=== PATIENT | male | born 1960 | race Caucasian/White ===

== ENCOUNTER 2018-07-10 15:36 | Emergency (ER) | payer OTHER ==
--- NOTE | 2018-07-10 16:04 | ED ---
General Adult HPI - General Chief complaint: Psychiatric Symptoms Stated complaint: Mental health Time Seen by Provider: 07/10/18 15:40 Source: patient, RN notes reviewed Mode of arrival: ambulatory Limitations: no limitations - History of Present Illness Initial comments: This is a 58-year-old male who presents emergency Department with police because patient had to be restrained and brought in with them is escorted. Patient states she doesn't remember any event he just knows he hasn't been on any of his psych meds for 2 years he called the ambulance and then he thinks he had a mental breakdown is what he states. Patient denies any physical complaints today. Patient states he has an abrasion on his forehead but he doesn't remember getting into an altercation with police. He has no headache he has no loss of consciousness he had no dizziness he was not days. Patient denies any extremity pain patient denies any chest pain patient denies any abdominal pain. Patient denies any back pain. Patient is breathing from the right upper eyelid patient does not have any pain there he has no tetanus shot recently. Patient did state to me that people are trying to kill him and those of the people from the [place] that he knew from the war. - Related Data Allergies Allergy/AdvReac Type Severity Reaction Status Date / Time No Known Allergies Allergy Verified 07/10/18 16:18 Review of Systems ROS Statement: Those systems with pertinent positive or pertinent negative responses have been documented in the HPI. ROS Other: All systems not noted in ROS Statement are negative. Past Medical History Past Medical History: No Reported History, Asthma Additional Past Medical History / Comment(s): Nerve damage in leg History of Any Multi-Drug Resistant Organisms: None Reported Past Surgical History: Orthopedic Surgery, Tonsillectomy Additional Past Surgical History / Comment(s): testicular surgery Past Psychological History: Depression Smoking Status: Former smoker Past Alcohol Use History: None Reported Past Drug Use History: None Reported General Exam - General Exam Comments Initial Comments: GENERAL: Patient is well-developed and well-nourished. Patient is nontoxic and well- hydrated and is in mild distress. ENT: Neck is soft and supple. No significant lymphadenopathy is noted. Oropharynx is clear. Moist mucous membranes. Neck has full range of motion without eliciting any pain. EYES: The sclera were anicteric and conjunctiva were pink and moist. Extraocular movements were intact and pupils were equal round and reactive to light. Upper eyelid has a 1 cm laceration PULMONARY: Unlabored respirations. Good breath sounds bilaterally. No audible rales rhonchi or wheezing was noted. CARDIOVASCULAR: There is a regular rate and rhythm without any murmurs gallops or rubs. ABDOMEN: Soft and nontender with normal bowel sounds. SKIN: 1 cm laceration to the upper right eyebrow NEUROLOGIC: Patient is alert and oriented x3. Cranial nerves II through XII are grossly intact. Motor and sensory are also intact. Normal speech, volume and content. Symmetrical smile. MUSCULOSKELETAL: Normal extremities with adequate strength and full range of motion. No lower extremity swelling or edema. No calf tenderness. LYMPHATICS: No significant lymphadenopathy is noted PSYCHIATRIC: Patient states he has been hearing voices and was looking to get some help but he thinks he had a breakdown that's why he was fighting the police. Patient denies suicidal or homicidal ideations Limitations: no limitations Course Vital Signs 07/10/18 15:38 Temperature 96.7 F L Pulse Rate 118 H Respiratory 17 Rate Blood Pressure 135/91 O2 Sat by Pulse 97 Oximetry Procedures - Laceration Laceration #1 Consent Obtained: verbal consent Indication: laceration Site: other (Right upper eyelid) Description: linear Depth: simple, single layer Size of Sutures: other (Dermabond) Patient Tolerated Procedure: no complications Medical Decision Making - Medical Decision Making EPS evaluated the patient and determined that the patient needed inpatient therapy he will be transferred to another psychiatric facility. EKG shows normal sinus rhythm at 63 bpm AR interval is 184 QRS is 92 QT interval is 432 QTC is 442. EKG shows no ST segment elevation or depression - Lab Data Lab Results 07/10/18 07/10/18 Range/Units 16:04 16:04 Urine Color Yellow Urine Appearance Cloudy (Clear) Urine pH 6.0 (5.0-8.0) Ur Specific [place] 1.023 (1.001-1.035) Urine Protein 1+ H (Negative) Urine Glucose (UA) Negative (Negative) Urine Ketones 2+ H (Negative) Urine Blood Negative (Negative) Urine Nitrite Negative (Negative) Urine Bilirubin Negative (Negative) Urine Urobilinogen 2.0 (<2.0) mg/dL Ur Leukocyte Esterase Negative (Negative) Urine RBC 1 (0-5) /hpf Urine WBC 4 (0-5) /hpf Calcium Oxalate Crystal Few H (None) /hpf Hyaline Casts 24 H (0-2) /lpf Urine Mucus Many H (None) /hpf Urine Opiates Screen Not Detected (NotDetected) Ur Oxycodone Screen Not Detected (NotDetected) Urine Methadone Screen Not Detected (NotDetected) Ur Propoxyphene Screen Not Detected (NotDetected) Ur Barbiturates Screen Not Detected (NotDetected) U Tricyclic Antidepress Not Detected (NotDetected) Ur Phencyclidine Scrn Not Detected (NotDetected) Ur Amphetamines Screen Not Detected (NotDetected) U Methamphetamines Scrn Not Detected (NotDetected) U Benzodiazepines Scrn Not Detected (NotDetected) Urine Cocaine Screen Not Detected (NotDetected) U Marijuana (THC) Screen Not Detected (NotDetected) Disposition Clinical Impression: Acute psychosis, Eyelid laceration Disposition: TRANSFER TO PSYCH HOSP/UNIT Referrals: [facility],Clinic [Primary Care Provider] - 1-2 days Time of Disposition: 18:04
[2018-07-10] MEDS ORDERED: DIPH,PERTUS(ACELL)TETVAC-LF 0.5 ML VIAL IM ONE (16:15)
[2018-07-10 16:27] LABS: Amphetamine Screen,Urine Not Detected (NotDetected); Barbiturate Screen,Urine Not Detected (NotDetected); Benzodiazepines Screen,Urine Not Detected (NotDetected); Cocaine Screen,Urine Not Detected (NotDetected); Methadone Screen, Urine Not Detected (NotDetected); Opiate Screen,Urine Not Detected (NotDetected); Oxycodone Screen, Urine Not Detected (NotDetected); Phencyclidine Screen,Urine Not Detected (NotDetected); Tricyclic Antidepressant,Urine Not Detected (NotDetected); Urn Cannabinoid Scrn Not Detected (NotDetected)
[2018-07-10] MEDS ORDERED: LORazepam 2 MG/ML INJ IM STA (17:14)
[2018-07-10 18:28] LABS: Appearance,Urine Cloudy (Clear); Bilirubin,Urine Negative (Negative); Blood,Urine Negative (Negative); Calcium Oxalate Crystals,Urine Few /hpf; Color,Urine Yellow; Glucose,Urine (UA) Negative (Negative); Hyaline Casts,Urine 24 /lpf (0-2); Ketones,Urine 2+ (Negative); Leukocyte Esterase,Urine Negative (Negative); Mucus,Urine Many /hpf; Nitrite,Urine Negative (Negative); Protein,Urine 1+ (Negative); RBC,Urine 1 /hpf (0-5); Specific Gravity,Urine 1.023 (1.001-1.035); WBC,Urine 4 /hpf (0-5)
[2018-07-10 19:07] LABS: Basophils % (A) 0 %; Eosinophils # (A) 0.1 k/uL (0-0.7); Eosinophils % (A) 1 %; HCT 42.4 % (39.0-53.0); HGB 14.9 gm/dL (13.0-17.5); Lymphocytes # (A) 0.8 k/uL (1.0-4.8); Lymphocytes % (A) 5 %; MCH 29.3 pg (25.0-35.0); MCHC 35.1 g/dL (31.0-37.0); MCV 83.5 fL (80.0-100.0); Mean Platelet Volume 8.1; Monocytes # (A) 0.8 k/uL (0-1.0); Monocytes % (A) 5 %; Neutrophils # (A) 13.5 k/uL (1.3-7.7); Neutrophils % (A) 88 %; Platelet Count 206 k/uL (150-450); RBC 5.08 m/uL (4.30-5.90); RDW 13.2 % (11.5-15.5); WBC 15.3 k/uL (3.8-10.6)
[2018-07-10 19:09] LABS: ALT 22 U/L (21-72); AST 23 U/L (17-59); Albumin 4.1 g/dL (3.5-5.0); Alkaline Phosphatase 67 U/L (38-126); Anion Gap 9 mmol/L; Blood Urea Nitrogen 12 mg/dL (9-20); Calcium 9.3 mg/dL (8.4-10.2); Carbon Dioxide 24 mmol/L (22-30); Chloride 107 mmol/L (98-107); Glucose 92 mg/dL (74-99); Sodium 140 mmol/L (137-145); Total Bilirubin 0.8 mg/dL (0.2-1.3); Total Protein 6.5 g/dL (6.3-8.2)
[2018-07-10] MEDS ORDERED: IBUPROFEN 400 MG TAB PO STA (22:08)
[2018-07-11] MEDS ORDERED: HYDROcodone/APAP 5-325MG 1 EACH TAB PO STA (09:30)
--- NOTE | 2018-07-11 09:49 | XR ---
EXAMINATION TYPE: XR knee complete LT DATE OF EXAM: 07/11/2018 COMPARISON: NONE HISTORY: Pain TECHNIQUE: Four views are submitted. FINDINGS: Mild narrowing the medial compartment knee. Osseous structures are intact. No acute fracture seen. IMPRESSION: 1. No acute fracture or dislocation. 2. Mild arthropathy.
--- NOTE | 2018-07-11 09:56 | XR ---
EXAMINATION TYPE: XR Hip LT and AP Pelvis DATE OF EXAM: 07/11/2018 COMPARISON: 07/31/2014 HISTORY: Pain TECHNIQUE: A single AP view of the pelvis is obtained. Two views of the left hip are obtained. FINDINGS: There is no acute fracture/dislocation evident in the pelvis. The hip and sacroiliac join ts appear symmetric and unremarkable. The overlying soft tissue appears unremarkable. Calcifications in the pelvis likely are vascular. There is concentric narrowing of the joint space compatible with arthropathy. No erosive changes. Hypertrophic margins along the lateral margin the acetabulum can be associated with femoral acetabular impingement. Two views of left hip show no acute fracture or dislocation. No focal lytic or sclerotic lesion seen in the proximal left femur. The overlying soft tissue is unremarkable. IMPRESSION: There is no acute fracture or dislocation in the pelvis or left hip.
[2018-07-11 19:18] VITALS: BP 132/69; PULSE 88; RESP 18; TEMP 98.2
== END 2018-07-11 18:30 ==
LOC: EC 15:36
DX: S01.111A Laceration without foreign body of right eyelid and periocular area, initial encounter (principal); F23 Brief psychotic disorder; Z87.891 Personal history of nicotine dependence; Z23 Encounter for immunization; X58.XXXA Exposure to other specified factors, initial encounter
CPT/HCPCS: 36415; 93005; 80053; 84443; 85025; 81001; 80306; 73502; 73562; 90715; 99285; 12011; 90471; 96372; J2060; 12001

== ENCOUNTER 2023-06-08 11:37 | Emergency (ER) | payer OTHER, MEDICARE ==
--- NOTE | 2023-06-08 11:57 | ED ---
General Adult HPI - General Source: patient, family, RN notes reviewed Mode of arrival: ambulatory Limitations: no limitations <Vipin Lynn - Last Filed: 06/08/23 11:55> - General Source: RN notes reviewed, old records reviewed <Devin Dawson - Last Filed: 06/08/23 15:05> <Idania Munguia - Last Filed: 06/09/23 00:15> - General Stated complaint: Mental Health Time Seen by Provider: 06/08/23 11:55 - History of Present Illness Initial comments: 63-year-old male presents emergency department with family for psychiatric evaluation. Patient had recent medication adjustments. Patient family states that he's been having very erratic bizarre behavior that he essentially is not talking at this point He did deny being suicidal. (Vipin Lynn) Patient is a 63-year-old male that was initially seen as a quick note. Presents for increasing anxiety. Brought in by transfer to psych evaluation after being sent by neurologist. Has had some bizarre behavior where he has a hard time speaking kind of seems overly anxious. Denies being suicidal or homicidal. Denies any hallucinations. Seems very anxious. He is compliant with medications. Neurology is concerning that this may be psychiatric in nature. Symptoms have been ongoing for 2 months. Presents for further evaluation at this time. (Devin Dawson) - Related Data Home Medications Medication Instructions Recorded Confirmed Albuterol Inhaler [Ventolin Hfa 1 puff INHALATION RT-TID PRN 06/08/23 06/08/23 Inhaler] Cholecalciferol [Vitamin D3 (25 50 mcg PO DAILY 06/08/23 06/08/23 Mcg = 1000 Iu)] Fluticasone Propion/Salmeterol 1 puff INHALATION RT-BID 06/08/23 06/08/23 [Fluticasone-Salmeterol 100-50] Lanolin/Mineral Oil [Eucerin 1 applic TOPICAL TID PRN 06/08/23 06/08/23 Original Lotion] Losartan [Cozaar] 50 mg PO DAILY 06/08/23 06/08/23 Propranolol [Inderal] 20 mg PO BID 06/08/23 06/08/23 QUEtiapine [SEROquel] 50 mg PO HS 06/08/23 06/08/23 amLODIPine 10 mg PO DAILY 06/08/23 06/08/23 busPIRone HCl [Buspar] 20 mg PO TID 06/08/23 06/08/23 Previous Rx's Medication Instructions Recorded LORazepam [Ativan] 1 mg PO TID PRN 3 Days #9 tab 06/08/23 Allergies Allergy/AdvReac Type Severity Reaction Status Date / Time Yeast Allergy Unknown Verified 06/08/23 14:20 clindamycin AdvReac Diarrhea Verified 06/08/23 14:20 meloxicam AdvReac "BLEEDING" Verified 06/08/23 14:20 prednisone AdvReac Lethargy, Verified 06/08/23 14:20 agitation, confusion ADRENAL CORTICOSTEROIDS AdvReac INSOMNIA Uncoded 06/08/23 14:20 Review of Systems ROS Other: All systems not noted in ROS Statement are negative. <Vipin Lynn - Last Filed: 06/08/23 11:55> ROS Other: All systems not noted in ROS Statement are negative. <Devin Dawson - Last Filed: 06/08/23 15:05> ROS Other: All systems not noted in ROS Statement are negative. <Idania Munguia - Last Filed: 06/09/23 00:15> ROS Statement: Those systems with pertinent positive or pertinent negative responses have been documented in the HPI. General: Appears in no acute distress. HEAD: Normal with no signs of head trauma. EYES: PERRLA, EOMI, conjunctiva normal, no discharge. ENT: Hearing grossly intact, normal oropharynx. RESPIRATORY: Clear breath sounds bilaterally. No wheezes, rales, or rhonchi. C/V: Regular rate and rhythm. S1 and S2 auscultated, no edema, peripheral pul ses 2+ and intact throughout ABD: Abd is soft, nontender, nondistended EXT: Normal range of motion, no obvious deformity SKIN: No rashes or lesions observed on exposed skin. NEURO: Seems to be alert and oriented. Intermittently will respond to questions but seems overcome with anxiety when responding. No focal deficits. Ambulating without issue. (Devin Dawson) Past Medical History Past Medical History: Asthma, Hypertension, No Reported History Additional Past Medical History / Comment(s): Nerve damage in leg, covid History of Any Multi-Drug Resistant Organisms: None Reported Past Surgical History: Orthopedic Surgery, Tonsillectomy Additional Past Surgical History / Comment(s): testicular surgery Past Psychological History: Anxiety, Bipolar, Depression Smoking Status: Former smoker Past Alcohol Use History: None Reported Past Drug Use History: None Reported <Vipin Lynn - Last Filed: 06/08/23 11:55> General Exam Limitations: no limitations <Vipin Lynn - Last Filed: 06/08/23 11:55> - General Exam Comments Initial Comments: Visual Physical Exam Vital signs reviewed General: Well-appearing, nontoxic, no acute distress. Head: Normocephalic, atraumatic Eyes: PERRLA, EOMI ENT: Airway patent Chest: Nonlabored breathing Skin: No visual rash, normal skin tone Neuro: Alert and oriented 3 Musculoskeletal: No gross abnormalities (Vipin Lynn) Course Vital Signs 06/08/23 06/08/23 06/08/23 11:49 14:25 16:30 Temperature 98.4 F Pulse Rate 73 69 60 Respiratory 18 16 18 Rate Blood Pressure 151/81 134/77 127/77 O2 Sat by Pulse 99 100 100 Oximetry Medical Decision Making <Vipin Lynn - Last Filed: 06/08/23 11:55> - Lab Data Result diagrams: 06/08/23 12:11 06/08/23 12:11 - EKG Data -: EKG Interpreted by Me <Devin Dawson - Last Filed: 06/08/23 15:05> - Lab Data Result diagrams: 06/08/23 12:11 06/08/23 12:11 <Idania Munguia - Last Filed: 06/09/23 00:15> - Medical Decision Making I completed the quick note portion of this chart signed Vipin Lynn PA-C (Vipin Lynn) Was pt. sent in by a medical professional or institution ([facility], HOME HEALTH CARE WORKER, urgent care, hospital, or [facility]...) When possible be specific @ -No Did you speak to anyone other than the patient for history (EMS, parent, family, police, friend...)? What history was obtained from this source @ -No Did you review nursing and triage notes (agree or disagree)? Why? @ -I reviewed and agree with nursing and triage notes Were old charts reviewed (outside hosp., previous admission, EMS record, old EKG, old radiological studies, urgent care reports/EKG's, [facility] records)? Report findings @ -Old charts reviewed Differential Diagnosis (chest pain, altered mental status, abdominal pain women, abdominal pain men, vaginal bleeding, weakness, fever, dyspnea, syncope, headache, dizziness, GI bleed, back pain, seizure, CVA, palpatations, mental health, musculoskeletal)? @ -Differential Mental Health Depression, anxiety, bipolar, psychosis, schizophrenia, borderline personality, situational depression, adjustment disorder, behavioral disorder, brain tumor, malingering, substance abuse, encephalopathy, medication reaction, dementia, hyp othyroidism, degenerative neurologic disorder, lupus.... This is not meant to be all-inclusive list EKG interpreted by me (3pts min.). @ -As above X-rays interpreted by me (1pt min.). @ -None done CT interpreted by me (1pt min.). @ -CT brain shows no obvious acute intracranial process. U/S interpreted by me (1pt. min.). @ -None done What testing was considered but not performed or refused? (CT, X-rays, U/S, labs)? Why? @ -None What meds were considered but not given or refused? Why? @ -None Did you discuss the management of the patient with other professionals (professionals i.e. , PA, HOME HEALTH CARE WORKER, lab, RT, psych nurse, hospice social worker, dobie worker, teacher, employee service officer, case filler)? Give summary @ -EPS notified of the consult Was smoking cessation discussed for >3mins.? @ -No Was critical care preformed (if so, how long)? @ -No Were there social determinants of health that impacted care today? How? (Homelessness, low income, unemployed, alcoholism, drug addiction, transportation, low edu. Level, literacy, decrease access to med. care, fpc, rehab)? @ -No Was there de-escalation of care discussed even if they declined (Discuss DNR or withdrawal of care, Hospice)? DNR status @ -No What co-morbidities impacted this encounter? (DM, HTN, Smoking, COPD, CAD, Cancer, CVA, ARF, Chemo, Hep., AIDS, mental health diagnosis, sleep apnea, morbid obesity)? @ -None Was patient admitted / discharged? Hospital course, mention meds given and route, prescriptions, significant lab abnormalities, going to OR and other pertinent info. @ -Based on the patient's presentation and physical exam, presents for psy chiatric evaluation from neurology outpatient. Appears to be anxious. We will medically clear the patient with basic labs, EKG, screening CT his symptoms have been ongoing for 2 months. Patient as well as friends are in agreement this plan. Vital signs within except for limits. He will receive Ativan for anxiety. He'll be changed into green scrubs. EKG showed no signs of acute ischemia however there was baseline artifact. Labs are within acceptable limits. UDS positive for tricyclics. CT brain revealed no obvious acute intracranial process. On reevaluation, patient is not talking and is feeling improved following the Ativan administration. At this time patient is medically cleared for evaluation by psychiatry. Disposition is pending psychiatric evaluation. EPS notified of the consult. Undiagnosed new problem with uncertain prognosis? @ -No Drug Therapy requiring intensive monitoring for toxicity (Heparin, Nitro, Insu lilia, Cardizem)? @ -No Were any procedures done? @ -No Diagnosis/symptom? @ -Encounter for psychiatric evaluation, anxiety Acute, or Chronic, or Acute on Chronic? @ -Acute Uncomplicated (without systemic symptoms) or Complicated (systemic symptoms)? @ -complicated Side effects of treatment? @ -No Exacerbation, Progression, or Severe Exacerbation? @ -No Poses a threat to life or bodily function? How? (Chest pain, [place], [place], pneumonia, PE, COPD, DKA, ARF, appy, cholecystitis, CVA, Diverticulitis, Homicidal, Suicidal, threat to staff... and all critical care pts) @ -Unlikely (Devin Dawson) EPS evaluated the patient and deemed him stable for discharge home. Patient is evaluated by myself and appears calm and collected. I did discuss medication possibilities. Family states that it appears that the Ativan helped the patient out and therefore I will prescribe him a short course. He is to follow-up with his primary care doctor for further medication changes and return for any new or worsening symptoms (Idania Munguia) - Lab Data Lab Results 06/08/23 06/08/23 06/08/23 Range/Units 12:11 12:11 12:11 WBC 7.4 (3.8-10.6) k/uL RBC 5.28 (4.30-5.90) m/uL Hgb 15.6 (13.0-17.5) gm/dL Hct 45.1 (39.0-53.0) % MCV 85.5 (80.0-100.0) fL MCH 29.6 (25.0-35.0) pg MCHC 34.7 (31.0-37.0) g/dL RDW 13.9 (11.5-15.5) % Plt Count 201 (150-450) k/uL MPV 8.3 Neutrophils % 77 % Lymphocytes % 15 % Monocytes % 6 % Eosinophils % 1 % Basophils % 0 % Neutrophils # 5.7 (1.3-7.7) k/uL Lymphocytes # 1.1 (1.0-4.8) k/uL Monocytes # 0.4 (0-1.0) k/uL Eosinophils # 0.1 (0-0.7) k/uL Basophils # 0.0 (0-0.2) k/uL Sodium 138 (137-145) mmol/L Potassium 3.8 (3.5-5.1) mmol/L Chloride 103 (98-107) mmol/L Carbon Dioxide 23 (22-30) mmol/L Anion Gap 12 mmol/L BUN 16 (9-20) mg/dL Creatinine 0.60 L (0.66-1.25) mg/dL Est GFR (CKD-EPI)AfAm >90 (>60 ml/min/1.73 sqM) Est GFR (CKD-EPI)NonAf >90 (>60 ml/min/1.73 sqM) Glucose 103 H (74-99) mg/dL Calcium 9.4 (8.4-10.2) mg/dL Total Bilirubin 0.9 (0.2-1.3) mg/dL AST 36 (17-59) U/L ALT 26 (4-49) U/L Alkaline Phosphatase 75 (38-126) U/L Total Protein 7.1 (6.3-8.2) g/dL Albumin 4.6 (3.5-5.0) g/dL Urine Color Light [place] Urine Appearance Clear (Clear) Urine pH 6.0 (5.0-8.0) Ur Specific [place] 1.020 (1.001-1.035) Urine Protein Negative (Negative) Urine Glucose (UA) Negative (Negative) Urine Ketones Trace H (Negative) Urine Blood Negative (Negative) Urine Nitrite Negative (Negative) Urine Bilirubin Negative (Negative) Urine Urobilinogen 0.2 (<2.0) mg/dL Ur Leukocyte Esterase Negative (Negative) Urine Opiates Screen Not Detected (NotDetected) Ur Oxycodone Screen Not Detected (NotDetected) Urine Methadone Screen Not Detected (NotDetected) Ur Propoxyphene Screen Not Detected (NotDetected) Ur Barbiturates Screen Not Detected (NotDetected) U Tricyclic Antidepress Detected H (NotDetected) Ur Phencyclidine Scrn Not Detected (NotDetected) Ur Amphetamines Screen Not Detected (NotDetected) U Methamphetamines Scrn Not Detected (NotDetected) U Benzodiazepines Scrn Not Detected (NotDetected) Urine Cocaine Screen Not Detected (NotDetected) U Marijuana (THC) Screen Not Detected (NotDetected) - EKG Data EKG Comments: 12-lead Electrocardiogram Interpretation Note EKG was reviewed and interpreted by myself. 12-lead ECG performed at 1250 is interpreted by me as revealing normal sinus rhythm at a rate of 70 beats per minute. [place] is normal. RI interval is 180 ms, QRS duration is 76 ms, QTc is 411 ms.. There were no ST or T wave abnormalities to suggest myocardial ischemia or injury. R wave progression across the precordium was satisfactory. By my interpretation this EKG is non-diagnostic for acute ischemia. EKG somewhat difficult to interpret due to baseline tremor patient been unable to sit still. (Devin Dawson) Disposition <Vipin Lynn - Last Filed: 06/08/23 11:55> <Devin Dawson - Last Filed: 06/08/23 15:05> Is patient prescribed a controlled substance at d/c from ED?: No Time of Disposition: 16:05 <Idania Munguia - Last Filed: 06/09/23 00:15> Clinical Impression: Encounter for psychiatric assessment, Acute anxiety Disposition: HOME SELF-CARE Condition: Stable Instructions (If sedation given, give patient instructions): Anxiety (ED) Additional Instructions: Please follow-up with your neurologist for further workup and return for any new or worsening symptoms Prescriptions: LORazepam [Ativan] 1 mg PO TID PRN 3 Days #9 tab PRN Reason: Anxiety [facility]: [facility] [Primary Care Provider] - 1-2 days
[2023-06-08 12:14] VITALS: TEMP 98.4
[2023-06-08 12:26] LABS: Basophils % (A) 0 %; Eosinophils # (A) 0.1 k/uL (0-0.7); Eosinophils % (A) 1 %; HCT 45.1 % (39.0-53.0); HGB 15.6 gm/dL (13.0-17.5); Lymphocytes # (A) 1.1 k/uL (1.0-4.8); Lymphocytes % (A) 15 %; MCH 29.6 pg (25.0-35.0); MCHC 34.7 g/dL (31.0-37.0); MCV 85.5 fL (80.0-100.0); Mean Platelet Volume 8.3; Monocytes # (A) 0.4 k/uL (0-1.0); Monocytes % (A) 6 %; Neutrophils # (A) 5.7 k/uL (1.3-7.7); Neutrophils % (A) 77 %; Platelet Count 201 k/uL (150-450); RBC 5.28 m/uL (4.30-5.90); RDW 13.9 % (11.5-15.5); WBC 7.4 k/uL (3.8-10.6)
[2023-06-08 12:36] LABS: Appearance,Urine Clear (Clear); Color,Urine Light Orange
[2023-06-08 12:38] LABS: ALT 26 U/L (4-49); AST 36 U/L (17-59); African American GFR (CKD) >90 (>60 ml/min/1.73 sqM); Albumin 4.6 g/dL (3.5-5.0); Alkaline Phosphatase 75 U/L (38-126); Anion Gap 12 mmol/L; Blood Urea Nitrogen 16 mg/dL (9-20); Calcium 9.4 mg/dL (8.4-10.2); Carbon Dioxide 23 mmol/L (22-30); Chloride 103 mmol/L (98-107); Glucose 103 mg/dL (74-99); Non-African American GFR(CKD) >90 (>60 ml/min/1.73 sqM); Potassium 3.8 mmol/L (3.5-5.1); Sodium 138 mmol/L (137-145); Total Bilirubin 0.9 mg/dL (0.2-1.3); Total Protein 7.1 g/dL (6.3-8.2)
[2023-06-08 12:39] LABS: Bilirubin,Urine Negative (Negative); Blood,Urine Negative (Negative); Glucose,Urine (UA) Negative (Negative); Ketones,Urine Trace (Negative); Leukocyte Esterase,Urine Negative (Negative); Nitrite,Urine Negative (Negative); Protein,Urine Negative (Negative); Urobilinogen,Urine 0.2 mg/dL (<2.0)
[2023-06-08] MEDS ORDERED: LORazepam 2 MG/ML INJ IM STA (12:40)
[2023-06-08 13:09] LABS: Amphetamine Screen,Urine Not Detected (NotDetected); Barbiturate Screen,Urine Not Detected (NotDetected); Benzodiazepines Screen,Urine Not Detected (NotDetected); Cocaine Screen,Urine Not Detected (NotDetected); Methadone Screen, Urine Not Detected (NotDetected); Opiate Screen,Urine Not Detected (NotDetected); Oxycodone Screen, Urine Not Detected (NotDetected); Phencyclidine Screen,Urine Not Detected (NotDetected); Tricyclic Antidepressant,Urine Detected (NotDetected); Urn Cannabinoid Scrn Not Detected (NotDetected)
--- NOTE | 2023-06-08 13:34 | CT ---
EXAMINATION TYPE: CT brain wo con DATE OF EXAM: 06/08/2023 HISTORY: Altered Mental Status CT DLP: 1066.4 mGycm. Automated Exposure Control for Dose Reduction was Utilized. TECHNIQUE: CT scan of the head is performed without contrast. COMPARISON: None. FINDINGS: There is no acute intracranial hemorrhage or midline shift identified. There is mild diff use ventricular and sulcal prominence consistent with mild diffuse atrophy. There is mild low-attenu ation in the periventricular white matter most likely consistent with chronic small vessel ischemic c hange. Small bony projection right frontal calvarium axial image 40 could Reflect osteoma The globes are intact and the visualized sinuses are clear. IMPRESSION: No acute intracranial hemorrhage or midline shift.
[2023-06-08 17:21] VITALS: BP 127/77; PULSE 60; RESP 18
== END 2023-06-08 17:12 | disposition home or self-care (01) ==
LOC: EC 11:37
DX: F41.9 Anxiety disorder, unspecified (principal); Z04.6 Encounter for general psychiatric examination, requested by authority; J45.909 Unspecified asthma, uncomplicated; I10 Essential (primary) hypertension; F31.9 Bipolar disorder, unspecified; Z87.891 Personal history of nicotine dependence; Z79.899 Other long term (current) drug therapy; Z88.8 Allergy status to other drugs, medicaments and biological substances; Z88.1 Allergy status to other antibiotic agents
CPT/HCPCS: 82075; 36415; 93005; 80053; 85025; 81003; 80306; 70450; 99285; 96372; J2060

== ENCOUNTER 2023-08-19 18:43 | Emergency (ER) | payer OTHER, MEDICARE ==
[2023-08-19 19:14] VITALS: PULSE 71
--- NOTE | 2023-08-19 19:14 | ED ---
Anxiety HPI - General Source: patient, RN notes reviewed, old records reviewed, Caregiver Mode of arrival: ambulatory Limitations: no limitations, altered mental status, physical limitation <Rad Brennan - Last Filed: 08/19/23 20:23> <Enrrique Gaffney - Last Filed: 08/19/23 22:48> - General Chief Complaint: Anxiety Stated Complaint: anxiety UTI Time Seen by Provider: 08/19/23 18:55 - History of Present Illness Initial Comments: This is a 63-year-old male coming in with severe debility severe debility s econdary to severe anxiety attack. Patient is unable provide history secondary to significant anxiety. Patient is brought in for psychiatric evaluation and need for psychiatric treatment. Patient is unable to again provide history neutrality of the contacts no other complaints (Rad Brennan) - Related Data Home Medications: Home Medications Medication Instructions Recorded Confirmed Albuterol Inhaler [Ventolin Hfa 1 puff INHALATION RT-TID PRN 06/08/23 06/08/23 Inhaler] Cholecalciferol [Vitamin D3 (25 50 mcg PO DAILY 06/08/23 06/08/23 Mcg = 1000 Iu)] Fluticasone Propion/Salmeterol 1 puff INHALATION RT-BID 06/08/23 06/08/23 [Fluticasone-Salmeterol 100-50] Lanolin/Mineral Oil [Eucerin 1 applic TOPICAL TID PRN 06/08/23 06/08/23 Original Lotion] Losartan [Cozaar] 50 mg PO DAILY 06/08/23 06/08/23 Propranolol [Inderal] 20 mg PO BID 06/08/23 06/08/23 QUEtiapine [SEROquel] 50 mg PO HS 06/08/23 06/08/23 amLODIPine 10 mg PO DAILY 06/08/23 06/08/23 busPIRone HCl [Buspar] 20 mg PO TID 06/08/23 06/08/23 Previous Rx's Medication Instructions Recorded LORazepam [Ativan] 1 mg PO TID PRN 3 Days #9 tab 06/08/23 Allergies/Adverse Reactions: Allergies Allergy/AdvReac Type Severity Reaction Status Date / Time Yeast Allergy Unknown Verified 08/19/23 18:52 clindamycin AdvReac Diarrhea Verified 08/19/23 18:52 meloxicam AdvReac "BLEEDING" Verified 08/19/23 18:52 prednisone AdvReac Lethargy, Verified 08/19/23 18:52 agitation, confusion ADRENAL CORTICOSTEROIDS AdvReac INSOMNIA Uncoded 08/19/23 18:52 Review of Systems ROS Other: All systems not noted in ROS Statement are negative. <MikaRad B - Last Filed: 08/19/23 20:23> ROS Other: All systems not noted in ROS Statement are negative. <Enrrique Gaffney - Last Filed: 08/19/23 22:48> ROS Statement: Those systems with pertinent positive or pertinent negative responses have been documented in the HPI. Past Medical History Past Medical History: Asthma, Hypertension, No Reported History Additional Past Medical History / Comment(s): Nerve damage in leg, covid History of Any Multi-Drug Resistant Organisms: None Reported Past Surgical History: Orthopedic Surgery, Tonsillectomy Additional Past Surgical History / Comment(s): testicular surgery Past Psychological History: Anxiety, Bipolar, Depression Smoking Status: Former smoker Past Alcohol Use History: None Reported Past Drug Use History: None Reported <Rad Brennan - Last Filed: 08/19/23 20:23> General Exam Limitations: no limitations, altered mental status General appearance: alert, in no apparent distress Head exam: Present: atraumatic, normocephalic, normal inspection Eye exam: Present: normal appearance, PERRL, EOMI. Absent: scleral icterus, conjunctival injection, periorbital swelling ENT exam: Present: normal exam, mucous membranes moist Neck exam: Present: normal inspection. Absent: tenderness, meningismus, lymphadenopathy Respiratory exam: Present: normal lung sounds bilaterally. Absent: respiratory distress, wheezes, rales, rhonchi, stridor Cardiovascular Exam: Present: regular rate, normal rhythm, normal heart sounds. Absent: systolic murmur, diastolic murmur, rubs, gallop, clicks GI/Abdominal exam: Present: soft, normal bowel sounds. Absent: distended, tenderness, guarding, rebound, rigid Extremities exam: Present: normal inspection, full ROM, normal capillary refill. Absent: tenderness, pedal edema, joint swelling, calf tenderness Back exam: Present: normal inspection Neurological exam: Present: alert, oriented X3, CN II-XII intact Psychiatric exam: Present: normal affect, normal mood Skin exam: Present: warm, dry, intact, normal color. Absent: rash <Rad Brennan - Last Filed: 08/19/23 20:23> Course <Rad Brennan - Last Filed: 08/19/23 20:23> Vital Signs 08/19/23 08/19/23 08/19/23 18:50 19:41 22:09 Temperature 98 F 98.1 F Pulse Rate 71 71 Respiratory 26 H 27 H 17 Rate Blood Pressure 163/60 153/87 O2 Sat by Pulse 98 97 Oximetry - Reevaluation(s) Reevaluation #1: 08/19/23 20:24 Medical records reviewed (Rad Brennan) Reevaluation #2: 08/19/23 20:24 Medically clear for psychiatric evaluation (Rad Brennan) Medical Decision Making <Enrrique Gaffney - Last Filed: 08/19/23 22:48> - Medical Decision Making Patient care signed out to me by previous shift physician, Dr. Cornell Browne. Patient was medically cleared by previous physician. Plan at signout was to follow-up with pending EPS recommendations. EPS did evaluate the patient recommended patient stable for discharge. He does have outpatient follow-up. Patient seen and evaluated at 10:48 PM stable medical addition. (Enrrique Gaffney) Disposition <Rad Brennan - Last Filed: 08/19/23 20:23> Is patient prescribed a controlled substance at d/c from ED?: No Time of Disposition: 22:48 <Enrrique Gaffney - Last Filed: 08/19/23 22:48> Clinical Impression: Panic disorder Disposition: HOME SELF-CARE Instructions (If sedation given, give patient instructions): Generalized Anxiet y Disorder (ED) Referrals: [facility],Clinic [Primary Care Provider] - 1-2 days
[2023-08-19] MEDS: PROCHLORPERAZINE 5 MG TAB PO STA (19:33)
[2023-08-19] MEDS: LORazepam 2 MG/ML INJ IM STA (19:37)
[2023-08-19 22:29] VITALS: BP 153/87; RESP 17; TEMP 98.1
== END 2023-08-19 22:58 | disposition home or self-care (01) ==
LOC: EC 18:43
DX: F41.0 Panic disorder [episodic paroxysmal anxiety] (principal); I10 Essential (primary) hypertension; J45.909 Unspecified asthma, uncomplicated; F31.9 Bipolar disorder, unspecified; Z87.891 Personal history of nicotine dependence; Z79.51 Long term (current) use of inhaled steroids; Z79.899 Other long term (current) drug therapy; Z88.1 Allergy status to other antibiotic agents; Z88.8 Allergy status to other drugs, medicaments and biological substances; Z86.16 Personal history of COVID-19; Z91.018 Allergy to other foods
CPT/HCPCS: 82075; 99283; 96372; S0183; J2060

== ENCOUNTER 2023-12-07 11:11 | Observation (INO) | payer OTHER, MEDICARE ==
[2023-12-07 11:20] LABS: Glucose,Whole Blood 87 mg/dL (70-110)
[2023-12-07] MEDS: diphenhydrAMINE 50 MG/ML 1 ML VIAL IVP STA ×2 (11:22→11:43)
[2023-12-07] MEDS: SODIUM CHLORIDE 0.9% 1,000 ML IV STA (11:29)
[2023-12-07] MEDS: levETIRAcetam IV 500 MG/5 ML VIAL IVP STA (11:29)
[2023-12-07 11:57] LABS: Basophils % (A) 0 %; Eosinophils % (A) 1 %; HCT 45.4 % (39.0-53.0); HGB 15.1 gm/dL (13.0-17.5); Lymphocytes % (A) 14 %; MCH 29.2 pg (25.0-35.0); MCHC 33.2 g/dL (31.0-37.0); MCV 87.9 fL (80.0-100.0); Mean Platelet Volume 9.8; Monocytes # (A) 0.6 k/uL (0-1.0); Monocytes % (A) 9 %; Neutrophils # (A) 5.5 k/uL (1.3-7.7); Neutrophils % (A) 76 %; Platelet Count 136 k/uL (150-450); RBC 5.17 m/uL (4.30-5.90); RDW 13.6 % (11.5-15.5); WBC 7.2 k/uL (3.8-10.6)
[2023-12-07 12:07] LABS: ALT 14 U/L (4-49); AST 27 U/L (17-59); Acetaminophen <10.0 ug/mL; African American GFR (CKD) >90 (>60 ml/min/1.73 sqM); Albumin 4.3 g/dL (3.5-5.0); Alcohol <10 mg/dL; Alkaline Phosphatase 68 U/L (38-126); Anion Gap 8 mmol/L; Blood Urea Nitrogen 14 mg/dL (9-20); Calcium 8.9 mg/dL (8.4-10.2); Carbon Dioxide 20 mmol/L (22-30); Chloride 105 mmol/L (98-107); Glucose 81 mg/dL (74-99); Magnesium 1.8 mg/dL (1.6-2.3); Non-African American GFR(CKD) >90 (>60 ml/min/1.73 sqM); Phenytoin (Dilantin) <3.0 ug/mL; Potassium 4.4 mmol/L (3.5-5.1); Salicylate <1.0 mg/dL; Sodium 133 mmol/L (137-145); Total Bilirubin 0.6 mg/dL (0.2-1.3); Total Protein 6.3 g/dL (6.3-8.2)
[2023-12-07 12:11] LABS: Valproic Acid (Depakene) 57.2 ug/mL
[2023-12-07] MEDS: LORazepam 2 MG/ML INJ IV STA ×3 (12:26→15:23)
[2023-12-07 12:58] LABS: Appearance,Urine Clear (Clear); Bilirubin,Urine Negative (Negative); Blood,Urine Negative (Negative); Color,Urine Colorless; Glucose,Urine (UA) Negative (Negative); Ketones,Urine Negative (Negative); Leukocyte Esterase,Urine Negative (Negative); Nitrite,Urine Negative (Negative); PH, Urine 6.5 (5.0-8.0); Protein,Urine Negative (Negative); Specific Gravity,Urine 1.005 (1.001-1.035); Urobilinogen,Urine <2.0 mg/dL (<2.0)
[2023-12-07 13:05] LABS: Amphetamine Screen,Urine Not Detected (NotDetected); Barbiturate Screen,Urine Not Detected (NotDetected); Benzodiazepines Screen,Urine Detected (NotDetected); Cocaine Screen,Urine Not Detected (NotDetected); Methadone Screen, Urine Not Detected (NotDetected); Opiate Screen,Urine Not Detected (NotDetected); Oxycodone Screen, Urine Not Detected (NotDetected); Phencyclidine Screen,Urine Not Detected (NotDetected); Tricyclic Antidepressant,Urine Detected (NotDetected); Urn Cannabinoid Scrn Not Detected (NotDetected)
--- NOTE | 2023-12-07 13:51 | CT ---
EXAMINATION TYPE: CT brain wo con DATE OF EXAM: 12/07/2023 COMPARISON: 06/08/2023 HISTORY: AMS CT DLP: 1095.4 mGycm Automated exposure control for dose reduction was used. Findings: The ventricles, basal cisterns and sulci over the convexities are within normal limits and there is n o mass effect or shift of midline structures. No abnormal density is seen throughout the brain parenchyma and there is no acute intra or extra-axia l hemorrhage. The posterior fossa including the brainstem, fourth ventricle and cerebellar pontine angles appear no rmal. Intraorbital contents appear normal and symmetric. Visualized paranasal sinuses are well aerated. The calvarium is intact. IMPRESSION: No significant abnormality seen. There is no acute bleed or mass effect.
[2023-12-07] MEDS ORDERED: ONDANSETRON 4 MG/2 ML VIAL IVP PRN (14:35)
[2023-12-07] MEDS ORDERED: NALOXONE 0.4 MG/ML 1 ML VIAL IV PRN (14:35)
--- NOTE | 2023-12-07 14:41 | ED ---
General Adult HPI - General Chief complaint: Altered Mental Status Stated complaint: AMS Time Seen by Provider: 12/07/23 11:15 Source: patient, family, EMS, RN notes reviewed, old records reviewed Mode of arrival: EMS Limitations: altered mental status - History of Present Illness Initial comments: Patient is a 63-year-old male who presents emergency department for altered mentation. Apparently for weeks to months has had intermittent altered mentation where he becomes less responsive very super anxious and has tremors. Similar complaint today. In the last few months has had [facility] Took a dose of melatonin last night and woke similar to how he is now. History mostly obtained from patient's friend who is with the patient. She is asking for CT imaging of the brain. - Related Data Home Medications Medication Instructions Recorded Confirmed Cholecalciferol [Vitamin D3 (25 50 mcg PO DAILY 06/08/23 12/07/23 Mcg = 1000 Iu)] Losartan [Cozaar] 50 mg PO DAILY 06/08/23 12/07/23 amLODIPine 10 mg PO DAILY 06/08/23 12/07/23 Divalproex ER [Depakote ER] 1,000 mg PO HS 12/07/23 12/07/23 LORazepam [Ativan] 1 mg PO BID 12/07/23 12/07/23 Melatonin 10 mg PO HS 12/07/23 12/07/23 Propranolol [Inderal] 5 mg PO BID 12/07/23 12/07/23 Sertraline [Zoloft] 200 mg PO DAILY 12/07/23 12/07/23 Allergies Allergy/AdvReac Type Severity Reaction Status Date / Time Yeast Allergy Unknown Verified 12/07/23 12:04 clindamycin AdvReac Diarrhea Verified 12/07/23 12:04 meloxicam AdvReac "BLEEDING" Verified 12/07/23 12:04 prednisone AdvReac Lethargy, Verified 12/07/23 12:04 agitation, confusion ADRENAL CORTICOSTEROIDS AdvReac INSOMNIA Uncoded 12/07/23 12:04 Review of Systems ROS Statement: Those systems with pertinent positive or pertinent negative responses have been documented in the HPI. Review of Systems: CONST: Denies fever EYES: Denies blurry vision ENT: Denies nasal congestion C/V: Denies Chest pain RESP: Denies shortness of breath GI: Denies abdominal pain : Denies dysuria SKIN: Denies rash. MSK: Denies joint pain. NEURO: Denies headache ROS Other: All systems not noted in ROS Statement are negative. Past Medical History Past Medical History: Asthma, Hypertension, No Reported History Additional Past Medical History / Comment(s): Nerve damage in leg, covid History of Any Multi-Drug Resistant Organisms: None Reported Past Surgical History: Orthopedic Surgery, Tonsillectomy Additional Past Surgical History / Comment(s): testicular surgery Past Psychological History: Anxiety, Bipolar, Depression Smoking Status: Former smoker Past Alcohol Use History: None Reported Past Drug Use History: None Reported General Exam - General Exam Comments Initial Comments: General: Appears in no acute distress. Generalized body shaking of the extremities. Generalized tremors. Is able to speak. Seems to be akathisia. HEAD: Normal with no signs of head trauma. EYES: PERRLA, EOMI, conjunctiva normal, no discharge. ENT: Hearing grossly intact, normal oropharynx. RESPIRATORY: Clear breath sounds bilaterally. No wheezes, rales, or rhonchi. C/V: Regular rate and rhythm. S1 and S2 auscultated, no edema, peripheral pulses 2+ and intact throughout ABD: Abd is soft, nontender, nondistended EXT: Normal range of motion, no obvious deformity SKIN: No rashes or lesions observed on exposed skin. NEURO: Alert and oriented x 4. Cranial nerves II-XII intact. No focal sensory or strength deficits. Akathisia movements. Limitations: altered mental status Course Vital Signs 12/07/23 12/07/23 12/07/23 11:12 11:30 11:41 Temperature 98.4 F Pulse Rate 77 75 71 Respiratory 20 10 L 18 Rate Blood Pressure 128/87 128/87 121/77 O2 Sat by Pulse 97 96 96 Oximetry 12/07/23 12/07/23 12/07/23 11:45 12:00 12:15 Temperature Pulse Rate 76 64 65 Respiratory 22 11 L 19 Rate Blood Pressure 121/77 124/83 96/79 O2 Sat by Pulse 96 96 96 Oximetry 12/07/23 15:01 Temperature Pulse Rate 68 Respiratory 18 Rate Blood Pressure 125/75 O2 Sat by Pulse 100 Oximetry Medical Decision Making - Medical Decision Making Was pt. sent in by a medical professional or institution (, PA, STATE MANAGER, urgent care, hospital, or detention...) When possible be specific @ -No Did you speak to anyone other than the patient for history (EMS, parent, family, police, friend...)? What history was obtained from this source @ -No Did you review nursing and triage notes (agree or disagree)? Why? @ -I reviewed and agree with nursing and triage notes Were old charts reviewed (outside hosp., previous admission, EMS record, old EKG, old radiological studies, urgent care reports/EKG's, detention records)? Report findings @ -Old charts reviewed and show that patient does have a history of anxiety. Seems to maybe have similar complaints at this time. Differential Diagnosis (chest pain, altered mental status, abdominal pain women, abdominal pain men, vaginal bleeding, weakness, fever, dyspnea, syncope, headache, dizziness, GI bleed, back pain, seizure, CVA, palpatations, mental health, musculoskeletal)? @ -Differential Mental Health Depression, anxiety, bipolar, psychosis, schizophrenia, borderline personality, situational depression, adjustment disorder, behavioral disorder, brain tumor, malingering, substance abuse, encephalopathy, medication reaction, dementia, hypothyroidism, degenerative neurologic disorder, lupus.... This is not meant to be all-inclusive list differential Altered Mental Status: Hypoglycemia, DKA, hypercapnia, ETOH, overdose, CO poisoning, trauma, myxedema coma, HTN encephalopathy, infection, encephalitis, psychosis, intercranial hemorrhage, hepatic encephalopathy, meningitis, CVA, this is not meant to be an all-inclusive list EKG interpreted by me (3pts min.). @ -As above X-rays interpreted by me (1pt min.). @ -None done CT interpreted by me (1pt min.). @ -CT brain reveals no obvious acute intracranial process. U/S interpreted by me (1pt. min.). @ -None done What testing was considered but not performed or refused? (CT, X-rays, U/S, labs)? Why? @ -None What meds were considered but not given or refused? Why? @ -None Did you discuss the management of the patient with other professionals (professionals i.e. , PA, STATE MANAGER, lab, RT, psych nurse, rn social services, radio performer, teacher, cra officer, case coordinator)? Give summary @ -Spoke with Dr. Galarza who accepted the admission. Was smoking cessation discussed for >3mins.? @ -No Was critical care preformed (if so, how long)? @ -No Were there social determinants of health that impacted care today? How? (Homelessness, low income, unemployed, alcoholism, drug addiction, transp ortation, low edu. Level, literacy, decrease access to med. care, skilled nursing, rehab)? @ -No Was there de-escalation of care discussed even if they declined (Discuss DNR or withdrawal of care, Hospice)? DNR status @ -No What co-morbidities impacted this encounter? (DM, HTN, Smoking, COPD, CAD, Cancer, CVA, ARF, Chemo, Hep., AIDS, mental health diagnosis, sleep apnea, morbid obesity)? @ -None Was patient admitted / discharged? Hospital course, mention meds given and route, prescriptions, significant lab abnormalities, going to OR and other pertinent info. @ -Based on patient's presentation and physical exam, presents with some altered mentation with generalized tremors. Does not appear to be seizure-like in nature. Patient's friend states that is somewhat chronic but worse today. He is able to communicate but patient states it is more disjointed than normal. Is alert and oriented x 4. Moving all 4 extremities. Seems to be akathisia, and we will treat with Benadryl. Will obtain basic labs as well as a CT brain at the request. Patient was in agreement this plan. Patient responded somewhat to the Benadryl however due to intentions to obtain CT I did provide a small dose of Ativan as it seems Ativan seem to have helped in the past. Patient calm down following Ativan administration. Vital signs within acceptable limits. EKG unremarkable. Workup unremarkable except for therapeutic valproic acid. CT brain was obtained and reveals no obvious acute intracranial process. I spoke with the patient and updated him as well as family. He will be admitted at this time. Patient was in agreement this plan. I spoke with the admitting physician, Dr. Galarza who accepted the admission. Psych consulted. Undiagnosed new problem with uncertain prognosis? @ -No Drug Therapy requiring intensive monitoring for toxicity (Heparin, Nitro, Insulin, Cardizem)? @ -No Were any procedures done? @ -No Diagnosis/symptom? @ -Akathisia, altered mental status Acute, or Chronic, or Acute on Chronic? @ -Acute Uncomplicated (without systemic symptoms) or Complicated (systemic symptoms)? @ -Complicated Side effects of treatment? @ -No Exacerbation, Progression, or Severe Exacerbation? @ -No Poses a threat to life or bodily function? How? (Chest pain, [place], [place], pneumonia, PE, COPD, DKA, ARF, appy, cholecystitis, CVA, Diverticulitis, Homicidal, Suicidal, threat to staff... and all critical care pts) @ -Possibly, yes - Lab Data Result diagrams: 12/07/23 11:24 12/07/23 11:24 Lab Results 12/07/23 12/07/23 12/07/23 Range/Units 11:18 11:24 11:24 WBC 7.2 (3.8-10.6) k/uL RBC 5.17 (4.30-5.90) m/uL Hgb 15.1 (13.0-17.5) gm/dL Hct 45.4 (39.0-53.0) % MCV 87.9 (80.0-100.0) fL MCH 29.2 (25.0-35.0) pg MCHC 33.2 (31.0-37.0) g/dL RDW 13.6 (11.5-15.5) % Plt Count 136 L (150-450) k/uL MPV 9.8 Neutrophils % 76 % Lymphocytes % 14 % Monocytes % 9 % Eosinophils % 1 % Basophils % 0 % Neutrophils # 5.5 (1.3-7.7) k/uL Lymphocytes # 1.0 (1.0-4.8) k/uL Monocytes # 0.6 (0-1.0) k/uL Eosinophils # 0.0 (0-0.7) k/uL Basophils # 0.0 (0-0.2) k/uL Sodium 133 L (137-145) mmol/L Potassium 4.4 (3.5-5.1) mmol/L Chloride 105 (98-107) mmol/L Carbon Dioxide 20 L (22-30) mmol/L Anion Gap 8 mmol/L BUN 14 (9-20) mg/dL Creatinine 0.71 (0.66-1.25) mg/dL Est GFR (CKD-EPI)AfAm >90 (>60 ml/min/1.73 sqM) Est GFR (CKD-EPI)NonAf >90 (>60 ml/min/1.73 sqM) Glucose 81 (74-99) mg/dL POC Glucose (mg/dL) 87 (70-110) mg/dL POC Glu Retail Buyer ID Xiomara Bobo Calcium 8.9 (8.4-10.2) mg/dL Magnesium 1.8 (1.6-2.3) mg/dL Total Bilirubin 0.6 (0.2-1.3) mg/dL AST 27 (17-59) U/L ALT 14 (4-49) U/L Alkaline Phosphatase 68 (38-126) U/L Total Protein 6.3 (6.3-8.2) g/dL Albumin 4.3 (3.5-5.0) g/dL Urine Color Urine Appearance (Clear) Urine pH (5.0-8.0) Ur Specific [place] (1.001-1.035) Urine Protein (Negative) Urine Glucose (UA) (Negative) Urine Ketones (Negative) Urine Blood (Negative) Urine Nitrite (Negative) Urine Bilirubin (Negative) Urine Urobilinogen (<2.0) mg/dL Ur Leukocyte Esterase (Negative) Salicylates <1.0 mg/dL Urine Opiates Screen (NotDetected) Ur Oxycodone Screen (NotDetected) Urine Methadone Screen (NotDetected) Acetaminophen <10.0 ug/mL Ur Barbiturates Screen (NotDetected) Phenytoin <3.0 ug/mL Valproic Acid 57.2 ug/mL U Tricyclic Antidepress (NotDetected) Ur Phencyclidine Scrn (NotDetected) Ur Amphetamines Screen (NotDetected) U Methamphetamines Scrn (NotDetected) U Benzodiazepines Scrn (NotDetected) Urine Cocaine Screen (NotDetected) U Marijuana (THC) Screen (NotDetected) Serum Alcohol <10 mg/dL 12/07/23 Range/Units 11:24 WBC (3.8-10.6) k/uL RBC (4.30-5.90) m/uL Hgb (13.0-17.5) gm/dL Hct (39.0-53.0) % MCV (80.0-100.0) fL MCH (25.0-35.0) pg MCHC (31.0-37.0) g/dL RDW (11.5-15.5) % Plt Count (150-450) k/uL MPV Neutrophils % % Lymphocytes % % Monocytes % % Eosinophils % % Basophils % % Neutrophils # (1.3-7.7) k/uL Lymphocytes # (1.0-4.8) k/uL Monocytes # (0-1.0) k/uL Eosinophils # (0-0.7) k/uL Basophils # (0-0.2) k/uL Sodium (137-145) mmol/L Potassium (3.5-5.1) mmol/L Chloride (98-107) mmol/L Carbon Dioxide (22-30) mmol/L Anion Gap mmol/L BUN (9-20) mg/dL Creatinine (0.66-1.25) mg/dL Est GFR (CKD-EPI)AfAm (>60 ml/min/1.73 sqM) Est GFR (CKD-EPI)NonAf (>60 ml/min/1.73 sqM) Glucose (74-99) mg/dL POC Glucose (mg/dL) (70-110) mg/dL POC Glu Retail Buyer ID Calcium (8.4-10.2) mg/dL Magnesium (1.6-2.3) mg/dL Total Bilirubin (0.2-1.3) mg/dL AST (17-59) U/L ALT (4-49) U/L Alkaline Phosphatase (38-126) U/L Total Protein (6.3-8.2) g/dL Albumin (3.5-5.0) g/dL Urine Color Colorless Urine Appearance Clear (Clear) Urine pH 6.5 (5.0-8.0) Ur Specific [place] 1.005 (1.001-1.035) Urine Protein Negative (Negative) Urine Glucose (UA) Negative (Negative) Urine Ketones Negative (Negative) Urine Blood Negative (Negative) Urine Nitrite Negative (Negative) Urine Bilirubin Negative (Negative) Urine Urobilinogen <2.0 (<2.0) mg/dL Ur Leukocyte Esterase Negative (Negative) Salicylates mg/dL Urine Opiates Screen Not Detected (NotDetected) Ur Oxycodone Screen Not Detected (NotDetected) Urine Methadone Screen Not Detected (NotDetected) Acetaminophen ug/mL Ur Barbiturates Screen Not Detected (NotDetected) Phenytoin ug/mL Valproic Acid ug/mL U Tricyclic Antidepress Detected H (NotDetected) Ur Phencyclidine Scrn Not Detected (NotDetected) Ur Amphetamines Screen Not Detected (NotDetected) U Methamphetamines Scrn Not Detected (NotDetected) U Benzodiazepines Scrn Detected H (NotDetected) Urine Cocaine Screen Not Detected (NotDetected) U Marijuana (THC) Screen Not Detected (NotDetected) Serum Alcohol mg/dL - EKG Data -: EKG Interpreted by Me EKG Comments: 12-lead Electrocardiogram Interpretation Note EKG was reviewed and interpreted by myself. 12-lead ECG performed at 1116 is interpreted by me as revealing normal sinus rhythm at a rate of 76 beats per minute. [place] normal. Parables 177 ms, QRS duration 74 ms, QTc is 406 ms. There were no ST or T wave abnormalities to suggest myocardial ischemia or injury. R wave progression across the precordium was satisfactory. By my int erpretation this EKG is non-diagnostic for acute ischemia. Good deal of baseline artifact secondary to tremors. Disposition Clinical Impression: Akathisia, AMS (altered mental status) Disposition: ADMITTED IP TO THIS HOSP Condition: Stable Time of Disposition: 14:40
[2023-12-07] MEDS: SODIUM CHLORIDE 0.9% 1,000 ML IV SCH (15:22)
--- NOTE | 2023-12-07 15:45 | P.HPIM ---
History of Present Illness H&P Date: 12/07/23 Chief Complaint: Confusion 63-year-old white male who reported to the hospital with confusion. He is accompanied by his cytologist who stated the patient has change in mental status that has been off and on for quite some time but got worse in the past few days. She suspects that he might have used some of his old medications. He was admitted to the inpatient [facility] at the [facility] few months ago. Currently patient is in bed, he is sleepy but does not appear to be in distress. There was no reported vomiting or diarrhea, no fever. Review of Systems unable to fully obtain / confusion no reported vomiting Past Medical History Past Medical History: Asthma, Hypertension, No Reported History Additional Past Medical History / Comment(s): Nerve damage in leg, covid History of Any Multi-Drug Resistant Organisms: None Reported Past Surgical History: Orthopedic Surgery, Tonsillectomy Additional Past Surgical History / Comment(s): testicular surgery Past Psychological History: Anxiety, Bipolar, Depression Smoking Status: Former smoker Past Alcohol Use History: None Reported Past Drug Use History: None Reported Medications and Allergies Home Medications Medication Instructions Recorded Confirmed Type Cholecalciferol [Vitamin D3 (25 50 mcg PO DAILY 06/08/23 12/07/23 History Mcg = 1000 Iu)] Losartan [Cozaar] 50 mg PO DAILY 06/08/23 12/07/23 History amLODIPine 10 mg PO DAILY 06/08/23 12/07/23 History Divalproex ER [Depakote ER] 1,000 mg PO HS 12/07/23 12/07/23 History LORazepam [Ativan] 1 mg PO BID 12/07/23 12/07/23 History Melatonin 10 mg PO HS 12/07/23 12/07/23 History Propranolol [Inderal] 5 mg PO BID 12/07/23 12/07/23 History Sertraline [Zoloft] 200 mg PO DAILY 12/07/23 12/07/23 History Allergies Allergy/AdvReac Type Severity Reaction Status Date / Time Yeast Allergy Unknown Verified 12/07/23 12:04 clindamycin AdvReac Diarrhea Verified 12/07/23 12:04 meloxicam AdvReac "BLEEDING" Verified 12/07/23 12:04 prednisone AdvReac Lethargy, Verified 12/07/23 12:04 agitation, confusion ADRENAL CORTICOSTEROIDS AdvReac INSOMNIA Uncoded 12/07/23 12:04 Physical Exam Vitals: Vital Signs Temp Pulse Resp BP Pulse Ox 12/07/23 15:01 68 18 125/75 100 12/07/23 12:15 65 19 96/79 96 12/07/23 12:00 64 11 L 124/83 96 12/07/23 11:45 76 22 121/77 96 12/07/23 11:41 71 18 121/77 96 12/07/23 11:30 75 10 L 128/87 96 12/07/23 11:12 98.4 F 77 20 128/87 97 Intake and Output 12/07/23 12/07/23 12/07/23 06:59 14:59 22:59 Other: Weight 75.75 kg Constitutional: Lethargic, partially oriented Eyes: Anicteric sclerae, moist conjunctiva, no lid-lag, PERRLA ENMT: NC/AT,Oropharynx clear, no erythema, exudates Neck:Supple, FROM, no masses, or JVD, No carotid bruits; No thyromegaly Lungs: Clear to auscultation, Clear to percussion, Normal respiratory effort, no accessory muscle use Cardiovascular: Heart regular in rate and rhythm, No murmurs, gallops, or rubs no peripheral edema Abdominal: Soft Nontender, non distended, no guarding, no rebound or rigidity, Normoactive bowel sounds No hepatomegaly, No splenomegaly, No palpable mass No abdominal wall hernia noted Skin: Normal temperature, tone, texture, turgor, No induration No subcutaneous nodules, No rash, lesions, No ulcers Extremities:No digital cyanosis No clubbing, Pedal pulses intact and symmetrical Radial pulses intact and symmetrical Normal gait and station, No calf tenderness Psychiatric: Partially oriented Neuro: Muscles Strength 5/5 in all 4 extremities, Sensation to light touch grossly present throughout, Cranial nerves II-XII grossly intact. No focal sensory deficits, tremors Results CBC & Chem 7: 12/07/23 11:24 12/07/23 11:24 Labs: Abnormal Lab Results - Last 24 Hours (Table) 12/07/23 12/07/23 12/07/23 Range/Units 11:24 11:24 11:24 Plt Count 136 L (150-450) k/uL Sodium 133 L (137-145) mmol/L Carbon Dioxide 20 L (22-30) mmol/L U Tricyclic Antidepress Detected H (NotDetected) U Benzodiazepines Scrn Detected H (NotDetected) Assessment and Plan Assessment: Assessment and plan: 1. Altered mental status, encephalopathy multifactorial likely associated with underlying psychiatric disorder: Possible polypharmacy, continue supportive care psychiatry following. Medically clear. 2. Essential hypertension: Continue outpatient medications, on Norvasc and Cozaar. 3. Bipolar disease: Psychiatry following, continue to monitor, medications adjusted per psychiatry. 4. Essential tremors: On propranolol. Disposition: Pending clinical progression.
[2023-12-07 19:31] LABS: Carbamazepine (Tegretol) <2.0 UG/ML (4.0-12.0)
[2023-12-07] MEDS: PROPRANOLOL 10 MG TAB PO SCH (22:28)
[2023-12-07] MEDS: DIVALPROEX ER 500 MG TAB.ER.24H PO SCH (22:28)
[2023-12-07] MEDS: LORazepam 1 MG TAB PO SCH (22:28)
[2023-12-08] MEDS: ALPRAZolam 0.5 MG TAB PO STA (00:23)
[2023-12-08] MEDS: SERTRALINE 100 MG TAB PO SCH (08:58)
[2023-12-08] MEDS: amLODIPine 10 MG TAB PO SCH (08:59)
[2023-12-08 11:30] LABS: Blood Urea Nitrogen 9.6 mg/dL (9.0-27.0); Carbon Dioxide 24.7 mmol/L (21.6-31.8); Chloride 104 mmol/L (96-109); Glucose 89 mg/dL (70-110); Potassium 4.4 mmol/L (3.5-5.5); Sodium 138 mmol/L (135-145)
[2023-12-08 11:31] LABS: ALT 13 U/L (10-49); AST 19 U/L (14-35); Albumin 4.2 g/dL (3.8-4.9); Albumin/Globulin Ratio 2.62 Ratio (1.60-3.17); Alkaline Phosphatase 54 U/L (41-126); Calcium 8.8 mg/dL (8.7-10.3); Globulin 1.6 g/dL (1.6-3.3); Total Bilirubin 0.3 mg/dL (0.3-1.2); Total Protein 5.8 g/dL (6.2-8.2)
[2023-12-08 11:35] LABS: Basophils # (A) 0.04 X 10*3/uL (0.00-0.10); Basophils % (A) 0.6 %; Eosinophils % (A) 1.6 %; HCT 44.6 % (39.6-50.0); HGB 14.8 g/dL (13.0-17.0); Lymphocytes # (A) 1.32 X 10*3/uL (0.90-5.00); Lymphocytes % (A) 21.1 %; MCH 29.1 pg (27.0-32.0); MCHC 33.2 g/dL (32.0-37.0); MCV 87.8 FL (80.0-97.0); Mean Platelet Volume 11.1 FL (9.5-12.2); Monocytes # (A) 0.56 X 10*3/uL (0.20-1.00); Monocytes % (A) 8.9 %; NRBC Per 100 WBC 0 X 10*3/uL (0.00-0.01); Neutrophils # (A) 4.19 X 10*3/uL (1.80-7.70); Platelet Count 157 X 10*3/uL (140-440); RBC 5.08 X 10*6/uL (4.40-5.60); RDW 13.8 % (11.5-14.5); WBC 6.26 X 10*3/uL (4.50-10.00)
--- NOTE | 2023-12-08 11:39 | P.PN ---
Subjective Progress Note Date: 12/08/23 Appears to be more awake and alert oriented today. Still does not appear to be fully oriented. Continues to have episodes of tremors. No reported vomiting, no chest pain. Objective - Vital Signs Vital signs: Vital Signs Temp 97.9 F 12/08/23 07:21 Pulse 62 12/08/23 07:21 Resp 14 12/08/23 07:21 BP 142/86 12/08/23 07:21 Pulse Ox 98 12/08/23 07:21 FiO2 Intake & Output 12/07/23 12/08/23 12/08/23 18:59 06:59 18:59 Intake Total 1500 Output Total 340 Balance 1160 Weight 75.75 kg 75.75 kg Intake: Intake, IV Titration 900 Amount Sodium Chloride 0.9% 1, 900 000 ml @ 75 mls/hr IV . [id number] [facility] Rx#:[id number] Oral 600 Output: Urine 340 Other: # Voids 5 - Exam Constitutional: No acute distress, conversant, pleasant, partially oriented Eyes: Anicteric sclerae, moist conjunctiva, no lid-lag, PERRLA ENMT: NC/AT,Oropharynx clear, no erythema, exudates Neck:Supple, FROM, no masses, or JVD, No carotid bruits; No thyromegaly Lungs: Clear to auscultation, Clear to percussion, Normal respiratory effort, no accessory muscle use Cardiovascular: Heart regular in rate and rhythm, No murmurs, gallops, or rubs no peripheral edema Abdominal: Soft Nontender, non distended, no guarding, no rebound or rigidity, Normoactive bowel sounds No hepatomegaly, No splenomegaly, No palpable mass No abdominal wall hernia noted Skin: Normal temperature, tone, texture, turgor, No induration No subcutaneous nodules, No rash, lesions, No ulcers Extremities:No digital cyanosis No clubbing, Pedal pulses intact and symmetrical Radial pulses intact and symmetrical Normal gait and station, No calf tenderness Psychiatric: Alert and oriented to person, place and time, Appropriate affect Intact judgement Neuro: Muscles Strength 5/5 in all 4 extremities, Sensation to light touch grossly present throughout, Cranial nerves II-XII grossly intact. No focal sensory deficits. Tremors mostly in the lower extremities - Labs CBC & Chem 7: 12/08/23 06:24 12/08/23 06:24 Labs: Abnormal Lab Results - Last 24 Hours (Table) 12/07/23 12/07/23 12/07/23 Range/Units 11:24 11:24 11:24 Plt Count 136 L (150-450) k/uL Immature Gran # (0.00-0.04) X 10*3/uL Sodium 133 L (137-145) mmol/L Carbon Dioxide 20 L (22-30) mmol/L Total Protein (6.2-8.2) g/dL Carbamazepine <2.0 L (4.0-12.0) UG/ML U Tricyclic Antidepress Detected H (NotDetected) U Benzodiazepines Scrn Detected H (NotDetected) 12/08/23 12/08/23 Range/Units 06:24 06:24 Plt Count (150-450) k/uL Immature Gran # 0.05 H (0.00-0.04) X 10*3/uL Sodium (137-145) mmol/L Carbon Dioxide (22-30) mmol/L Total Protein 5.8 L (6.2-8.2) g/dL Carbamazepine (4.0-12.0) UG/ML U Tricyclic Antidepress (NotDetected) U Benzodiazepines Scrn (NotDetected) Assessment and Plan Assessment: Assessment and plan: 1. Altered mental status, encephalopathy multifactorial likely associated with underlying psychiatric disorder: Possible polypharmacy, continue supportive care psychiatry following. Medically clear. Continue supportive care. 2. Essential hypertension: Continue outpatient medications, on Norvasc and Cozaar. 3. Bipolar disease: Psychiatry following, continue to monitor, medications adjusted per psychiatry. 4. Essential tremors: On propranolol. Disposition: Pending clinical progression. Patient will be evaluated by psychiatry, possible transfer to inpatient psychiatry at the [facility]. Appreciate input from case management.
--- NOTE | 2023-12-08 17:29 | P.CN ---
Psychiatric Consult - . Consult date: 12/08/23 Consult:: 12/08/23 17:29 CONSULTATION Reason for consult: Altered MS. identifying Data: The patient is a year old, single/, white/Black male/female, who lives [place] in [place] Reason for admission: History of present illness: The patient was brought to the emergency department via a EMS. The patient called 911 because of panic attack. The ER note states that patient friend indicated that the patient is having altered mentation off and on for some time but recently got worse. The friend also noted that patient may be getting mixed-up his medications. or not taking his medications. After initial examination and other work-up, the patient was transferred to medical floor for further management. During this evaluation, the patient reported the patient reported that he came to the hospital for panic attacks. The patient indicated that he has had sleep problems for years. His current medications are not helping him. The patient noted that he has been seeking help for psychiatric issues for a long time. He has taken Depakote and Zoloft for years. He indicated that he has been hospitalized 3 times. As per chart, his last psychiatric admission was few months ago. The patient was a poor historian. He exhibited significant latency in responding. His responses were vague lacking preciseness. The patient noted he saw a Neurologist last winter for assessment of Tumor. He was advised to go to [facility] to movement disorder clinic. The patient did not follow through with the recommendations. The patient chronology was poor. He seems to have some memory impairment. His orientation was fine. The nursing staff noted that the patient exhibited shakiness, tremors, tic and difficulty in getting words out after taking medications and then subsided later. The patient is current psychiatric medications are Zoloft and Depakote. He is on Propranolol 10 mg, most likely Depakote induced tremors. Other movement are not related to his current medication. He could not tell me the names of other medication. His friend will to be contact for further information. Current and past medications: Current medications as indicated above. Past medication not known. History of past psychiatric illness: As indicated above. Past medical history: As per EMR. Substance abuse history: None Family history of psychiatric disorder: The patient denied. MSE: Alert and attentive Orientation X3. Pleasant and cooperative. Psychomotor activity: Normal. Mouth smacking, grimacing and some rhythmic movements of the toes noted. Speech: Normal tone, latency of response, and quantity Mood: Anxious Affect: Shallow and superficial SI or HI: None Thought content: Normal Thought process: Normal Perceptual disturbance: Normal Cognition: Intact Judgement and Insight: Intact Diagnosis: Plausible neurocognitive impairment Movement disorder H/O Bipolar disorder Plan: Suggest Neurology consult to assess the movement disorder and Neurocognitive impairment. Medication recommendations: Hydroxyzine 50 mg prn for sleep. Continue rest of the medication Depakote blood level. Obtain last admission records from [facility] The patient to be referred to out-pt clinic after discharge. Corby Abdullahi MD Psychiatry
--- NOTE | 2023-12-08 17:34 | P.CNNES ---
History of Present Illness Consult date: 12/08/23 Requesting physician: Corby Abdullahi Reason for Consult: tremors History of Present Illness: This is a 63-year-old gentleman with history of hypertension, bipolar, depression, and anxiety who presented emergency department for altered mental status. Neurology is consulted to for tremor by psychiatry team. History is obtained from medical record and the patient's nurse. It seems the patient is having intermittent altered mentation per the ED physician and is less responsive very anxious and having tremor. Patient states he came to the hospital because he is having a panic attack. Seems psychiatry evaluate him today and did not feel his tremors were psychiatric in nature and recommended neurological evaluation. Patient denies any history of seizures in the past. Patient denies any history of stroke. Per the patient's nurse he will have tremors that is nonrhythmic that is fluctuating and she feels the tremor was worse with when he received the medication. Is unable to provide a thorough history for me. The ED physician's note this seems in the last few months he had increased medication that was started by the [facility] facility. He is on Depakote extended release at 1000 mg nightly, Ativan 1 mg twice daily, propranolol, Zoloft 200 mg daily. Some of the workup during this hospital visit consisted of: CBC with differential as platelet was 136 on presentation then resolved otherwise CBC with differential is unremarkable Sodium is 133 otherwise rest of the chemistry panel is unremarkable. Magnesium, calcium, sodium is within normal limits Patient urine drug screen is positive for tricyclic antidepressant and benzo. Serum alcohol is less than 10 Valproic acid level is [address] is [address] therapeutic CT of the head is reported as no significant abnormality seen. There is no acute bleed or mass effect. I personally reviewed the CT and agree with the report. Review of Systems Limited but the positive and negative as per HPI. Past Medical History Past Medical History: Asthma, Hypertension Additional Past Medical History / Comment(s): Nerve damage in leg, covid History of Any Multi-Drug Resistant Organisms: None Reported Past Surgical History: Orthopedic Surgery, Tonsillectomy Additional Past Surgical History / Comment(s): testicular surgery Past Psychological History: Anxiety, Bipolar, Depression Smoking Status: Former smoker Past Alcohol Use History: None Reported Past Drug Use History: None Reported Medications and Allergies Home Medications Medication Instructions Recorded Confirmed Type Cholecalciferol [Vitamin D3 (25 50 mcg PO DAILY 06/08/23 12/07/23 History Mcg = 1000 Iu)] Losartan [Cozaar] 50 mg PO DAILY 06/08/23 12/07/23 History amLODIPine 10 mg PO DAILY 06/08/23 12/07/23 History Divalproex ER [Depakote ER] 1,000 mg PO HS 12/07/23 12/07/23 History LORazepam [Ativan] 1 mg PO BID 12/07/23 12/07/23 History Melatonin 10 mg PO HS 12/07/23 12/07/23 History Propranolol [Inderal] 5 mg PO BID 12/07/23 12/07/23 History Sertraline [Zoloft] 200 mg PO DAILY 12/07/23 12/07/23 History Allergies Allergy/AdvReac Type Severity Reaction Status Date / Time Yeast Allergy Unknown Verified 12/07/23 12:04 clindamycin AdvReac Diarrhea Verified 12/07/23 12:04 meloxicam AdvReac "BLEEDING" Verified 12/07/23 12:04 prednisone AdvReac Lethargy, Verified 12/07/23 12:04 agitation, confusion ADRENAL CORTICOSTEROIDS AdvReac INSOMNIA Uncoded 12/07/23 12:04 Physical Examination - Vital Signs Vital Signs: Vital Signs Temp Pulse Pulse Resp BP BP Pulse Ox 12/08/23 14:00 97.9 F 67 19 130/83 97 12/08/23 07:21 97.9 F 62 14 142/86 98 12/08/23 02:00 97.7 F 58 L 16 136/76 97 12/07/23 20:00 97.7 F 62 12 143/83 97 12/07/23 18:03 97.8 F 58 L 16 135/84 100 Intake and Output 12/08/23 12/08/23 12/08/23 06:59 14:59 22:59 Intake Total 1500 Output Total 400 Balance 1500 -400 Intake: Intake, IV Titration 900 Amount Sodium Chloride 0.9% 1, 900 000 ml @ 75 mls/hr IV . [id number] [facility] Rx#:[id number] Oral 600 Output: Urine 400 Other: # Voids 5 # Bowel Movements 1 General: Lying in bed and does not appear in acute distress. Psych: Appears flat affect. Neuro: Limited since he is drowsy. He is having fluctuations drowsiness. He is oriented to self, time and correctly stated he is in [facility]. Again he is having fluctuation with drowsiness and at times he will have a hard time opening his eyes. He is following few simple commands. Language is limi joe but does not appear expressive aphasia. The pupils are round about 3 mm and reactive to light. Visual nassar are full to confrontation. Had a hard time doing the extraocular movement because of his cooperation. It seems the patient has minimal left nasolabial flattening. But symmetrical with smile. No dysarthria. He sticks out the tongue [id number] without any difficulty Motor strength is he is left in bilateral upper extremity above gravity without any difficulty. He is also lifting the right lower extremity above gravity. Left lower extremity is limited and it is weak and he stated that is old. Having intermittent tremor of the right foot toes and at times the left and he is responding during this episode Sensation decree sensation over the left and he stated that is old otherwise normal Reflexes 1 positive Plantars are mute. Results - Laboratory Findings CBC and BMP: 12/08/23 06:24 12/08/23 06:24 Abnormal Lab Findings: Abnormal Labs 12/07/23 12/07/23 12/07/23 11:24 11:24 11:24 Plt Count 136 L Immature Gran # Sodium 133 L Carbon Dioxide 20 L Total Protein Carbamazepine <2.0 L U Tricyclic Antidepress Detected H U Benzodiazepines Scrn Detected H 12/08/23 12/08/23 06:24 06:24 Plt Count Immature Gran # 0.05 H Sodium Carbon Dioxide Total Protein 5.8 L Carbamazepine U Tricyclic Antidepress U Benzodiazepines Scrn Assessment and Plan Assessment: This is a 63-year-old gentleman with a history of hypertension, bipolar, anxiety depression who presents because of intermittent confusion in which she becomes less responsive very anxious and having tremors per the ED note. He is on Depakote, Ativan, Zoloft and it seems that in the last few months he [facility] evaluated him and they felt it was not a psychiatric issue but rather neurological. Tremor with intermittent confusion: Unsure exact etiology but rule out due to medication effect especially his medication has been increased in the last few months versus ruling out seizure. Patient is on high dose of Zoloft. Depakote level was therapeutic. CT of the head is unremarkable History of old left lower extremity weakness with numbness according to the patient: Unsure if he had left lumbar radiculopathy History of bipolar History of anxiety History of depression Plan: Order TSH, CK level, ammonia level, vitamin B12 Ordered a routine EEG I think the patient is on a high dose of Zoloft in my opinion and unsure if there is interaction between medication. Psychiatry was consulted Will defer the rest of the medical management to primary and other specialist Plan discussed with the patient's nurse Thank for the consultation Dr. Miguel will resume neurology service tomorrow AM Time with Patient: Greater than 30
[2023-12-08 19:39] LABS: Creatine Kinase 132 U/L (55-170)
[2023-12-08] MEDS ORDERED: hydrOXYzine pamoate 25 MG CAP PO SCH (21:00)
[2023-12-08] MEDS: hydrOXYzine pamoate 25 MG CAP PO PRN (21:39)
[2023-12-08] MEDS ORDERED: MELATONIN 5 MG TABLET PO PRN (22:50)
[2023-12-08] MEDS: ALPRAZolam 0.25 MG TAB PO STA (23:00)
--- NOTE | 2023-12-09 16:28 | P.PN ---
Subjective Progress Note Date: 12/09/23 Patient was interactive on exam today, but still appears quite confused. Ongoing workup per neurology and psychiatry. Gen: In NAD, non-toxic HEENT: normocephalic, atraumatic, hearing acuity is intant, mucous membranes moist CVS: perfusing all extremities well, no pitting edema, Respiratory: symmetric chest expansion, no accessory muscle use, GI: soft, NTTP, ND, : no suprapubic tenderness, no CVA tenderness MSK/Derm: no rashes, cyanosis Neuro: CN II-XII intact, no motor weakness, Hospital course: 63-year-old man with medical history of hypertension, bipolar disorder, essential tremors presented for evaluation of altered mental status. Neurology and psychiatry were consulted, psychiatry believes polypharmacy is contributing to patient's altered mental status, cleared the patient from their end. Neurology workup is ongoing. Assessment/plan: 1. Altered mental status, encephalopathy multifactorial likely associated with underlying psychiatric disorder: Possible polypharmacy, continue supportive care psychiatry following. Medically clear. Continue supportive care. 2. Essential hypertension: Continue outpatient medications, on Norvasc and Cozaar. 3. Bipolar disease: Psychiatry following, continue to monitor, medications adjusted per psychiatry. 4. Essential tremors: On propranolol. Disposition: Pending clinical progression. Patient will be evaluated by psychiatry, possible transfer to inpatient psychiatry at the [facility]. Appreciate input from case management. Objective - Vital Signs Vital signs: Vital Signs Temp 98.1 F 12/09/23 13:07 Pulse 65 12/09/23 13:07 Resp 17 12/09/23 13:07 BP 145/77 12/09/23 13:07 Pulse Ox 98 12/09/23 13:07 FiO2 Intake & Output 12/08/23 12/09/23 12/09/23 18:59 06:59 18:59 Output Total 850 775 Balance -850 -775 Output: Urine 850 775 Other: # Bowel Movements 1 - Labs CBC & Chem 7: 12/08/23 06:24 12/08/23 06:24
--- NOTE | 2023-12-09 16:54 | P.PN ---
Subjective Progress Note Date: 12/09/23 Patient was initially seen by Dr. Lorenzo Walsh. Please refer to his note for details. Patient is a 63-year-old male with psychiatric history with tremors, intermittent confusion and his [facility] Walsh felt that confusion was related to psych medications. Objective - Vital Signs Vital signs: Vital Signs Temp 98.1 F 12/09/23 13:07 Pulse 65 12/09/23 13:07 Resp 17 12/09/23 13:07 BP 145/77 12/09/23 13:07 Pulse Ox 98 12/09/23 13:07 FiO2 Intake & Output 12/08/23 12/09/23 12/09/23 18:59 06:59 18:59 Output Total 850 775 Balance -850 -775 Output: Urine 850 775 Other: # Bowel Movements 1 - Exam Patient is a young looking elderly male, laying in the bed, in no acute distress. Patient is alert and awake in no distress. He has a slightly hesitant speech. Patient knows it is December and the year is and thinks that he is in [place] in [place] and knows name of the current president Mr. Jolynn jensen. Patient can name objects but is very hesitant, delayed response. Some scanning type response. He can repeat. Patient states that he has son Portillo, and stepdaughter Dania. He lives by himself. His pupils are equal, round and reacting, visual nassar are full, face is symmetric. Lips are slightly dry. Tongue protrudes to midline. On muscle strength testing, there is no pronator drift. He has slight, mild tremors of outstretched hands, only with arms up, but not with palms down. Tone is normal. Muscle strength appears normal although he was giving decreased effort. He has constant toe wiggling, almost like a nervous tic. No ataxia for [id number] testing, no ataxia for [id number] testing. He has some history of previous scar over the left hip region. - Labs CBC & Chem 7: 12/08/23 06:24 12/08/23 06:24 Assessment and Plan Assessment: This is a 63-year-old gentleman with a history of hypertension, bipolar, anxiety depression who presents because of intermittent confusion in which she becomes less responsive very anxious and having tremors per the ED note. He is on Depakote, Ativan, Zoloft and it seems that in the last few months he [facility] evaluated him and they felt it was not a psychiatric issue but rather neurological. Tremor with intermittent confusion: Unsure exact etiology but rule out due to medication effect especially his medication has been increased in the last few months versus ruling out seizure. Patient is on high dose of Zoloft. Depakote level was therapeutic. CT of the head is unremarkable History of old left lower extremity weakness with numbness according to the patient: Patient claims he had left hip surgery from "bone spurs". History of bipolar History of anxiety History of depression Plan: TSH 0.812, CK 132, ammonia level 9, vitamin B12 416. Depakote level 57.2. Dr. Walsh ordered EEG Dr. Walsh was concerned about high-dose Zoloft, if there is interaction between medication. Psychiatry on board. Will defer the rest of the medical management to primary and other specialist
[2023-12-10] MEDS: hydrOXYzine pamoate 25 MG CAP PO ONE (03:38)
--- NOTE | 2023-12-10 12:29 | P.PN ---
Subjective Progress Note Date: 12/10/23 Patient was interactive on exam today, but still appears quite confused. Ongoing workup per neurology and psychiatry. Gen: In NAD, non-toxic HEENT: normocephalic, atraumatic, hearing acuity is intant, mucous membranes moist CVS: perfusing all extremities well, no pitting edema, Respiratory: symmetric chest expansion, no accessory muscle use, GI: soft, NTTP, ND, : no suprapubic tenderness, no CVA tenderness MSK/Derm: no rashes, cyanosis Neuro: CN II-XII intact, no motor weakness, Hospital course: 63-year-old man with medical history of hypertension, bipolar disorder, essential tremors presented for evaluation of altered mental status. Neurology and psychiatry were consulted, psychiatry believes polypharmacy is contributing to patient's altered mental status, cleared the patient from their end. Neurology workup is ongoing. Assessment/plan: 1. Altered mental status, encephalopathy multifactorial likely associated with underlying psychiatric disorder: Possible polypharmacy, continue supportive care psychiatry following. Medically clear. Continue supportive care. 2. Essential hypertension: Continue outpatient medications, on Norvasc and Cozaar. 3. Bipolar disease: Psychiatry following, continue to monitor, medications adjusted per psychiatry. 4. Essential tremors: On propranolol. Disposition: Pending clinical progression. Patient will be evaluated by psychiatry, possible transfer to inpatient psychiatry at the [place]. Appreciate input from case management. Objective - Vital Signs Vital signs: Vital Signs Temp 97.7 F 12/10/23 07:18 Pulse 65 12/10/23 07:18 Resp 19 12/10/23 07:18 BP 152/89 12/10/23 07:18 Pulse Ox 96 12/10/23 09:47 FiO2 Intake & Output 12/09/23 12/10/23 12/10/23 18:59 06:59 18:59 Output Total 860 700 Balance -860 -700 Output: Urine 860 700 Other: # Voids 3 - Labs CBC & Chem 7: 12/08/23 06:24 12/08/23 06:24
[2023-12-10] MEDS: hydrOXYzine pamoate 25 MG CAP PO STA (21:50)
[2023-12-10] MEDS: ZOLPIDEM 5 MG TAB PO PRN (22:54)
[2023-12-11 09:50] LABS: Basophils % (A) 0 %; Eosinophils # (A) 0.1 k/uL (0-0.7); Eosinophils % (A) 1 %; HGB 16.5 gm/dL (13.0-17.5); Lymphocytes # (A) 0.9 k/uL (1.0-4.8); Lymphocytes % (A) 11 %; MCH 30.2 pg (25.0-35.0); MCHC 35.8 g/dL (31.0-37.0); MCV 84.5 fL (80.0-100.0); Mean Platelet Volume 9.2; Monocytes # (A) 0.7 k/uL (0-1.0); Monocytes % (A) 9 %; Neutrophils % (A) 77 %; Platelet Count 172 k/uL (150-450); RBC 5.44 m/uL (4.30-5.90); RDW 13.4 % (11.5-15.5); WBC 7.9 k/uL (3.8-10.6)
--- NOTE | 2023-12-11 12:06 | EEG ---
ELECTROENCEPHALOGRAM REPORT PREAMBLE: This is a 63-year-old male with intermittent episodes of confusion. This study is performed to evaluate for any epileptiform activity. The patient does have history of bipolar depression, hypertension, and anxiety. CURRENT MEDICATIONS: 1. Norvasc. 2. Depakote. 3. Ativan. 4. Zofran. 5. Inderal. 6. Ambien. EEG FINDINGS: This is a 21-channel digital EEG recorded with video component, utilizing 10/20 international system with referential and bipolar montages. Background consists of well-developed, moderately well regulated, low amplitude 8 to 9 hertz alpha activity seen in posterior head region. Background is very frequently interrupted with high amplitude myogenic activity seen in bihemispheric region, maximal in the bitemporal region. Frequent jaw movement and pharyngeal movement were noted during the study. Photic driving response was not seen. At the end of the study, industrial hygiene technician asked the patient to open the jaw and hold it, during which time no myogenic activity was seen and very well-formed posterior dominant alpha activity was seen. No focal or generalized epileptiform activity was seen. Different stages of sleep were not seen. IMPRESSION: This is a normal awake and drowsy EEG. Presence of very frequent intermittent high- amplitude myogenic activity seen, particularly in bitemporal region. Evaluate for possible dystonia or tremors. MMODL / IJN: [id number] /
[2023-12-11 16:05] LABS: Magnesium 1.9 mg/dL (1.5-2.4)
--- NOTE | 2023-12-11 16:05 | P.PN ---
Subjective Progress Note Date: 12/11/23 Patient was interactive on exam today, but still appears quite confused. Ongoing workup per neurology and psychiatry. Gen: In NAD, non-toxic HEENT: normocephalic, atraumatic, hearing acuity is intant, mucous membranes moist CVS: perfusing all extremities well, no pitting edema, Respiratory: symmetric chest expansion, no accessory muscle use, GI: soft, NTTP, ND, : no suprapubic tenderness, no CVA tenderness MSK/Derm: no rashes, cyanosis Neuro: CN II-XII intact, no motor weakness, Hospital course: 63-year-old man with medical history of hypertension, bipolar disorder, essential tremors presented for evaluation of altered mental status. Neurology and psychiatry were consulted, psychiatry believes polypharmacy is contributing to patient's altered mental status, cleared the patient from their end. Neurology workup is ongoing. Assessment/plan: 1. Altered mental status, encephalopathy multifactorial likely associated with underlying psychiatric disorder: Possible polypharmacy, continue supportive care psychiatry following. Medically clear. Continue supportive care. -Discussed with psychiatry today regarding re-evaluation and final recommendations for discharge, they are going to re-evaluate the patient today per my understanding of our conversation. 2. Essential hypertension: Continue outpatient medications, on Norvasc and Cozaar. 3. Bipolar disease: Psychiatry following, continue to monitor, medications adjusted per psychiatry. 4. Essential tremors: On propranolol. Disposition: Pending psychiatry clearance. Objective - Vital Signs Vital signs: Vital Signs Temp 98.0 F 12/11/23 14:00 Pulse 62 12/11/23 14:00 Resp 16 12/11/23 14:00 BP 115/63 12/11/23 14:00 Pulse Ox 96 12/11/23 14:00 FiO2 Intake & Output 12/10/23 12/11/23 12/11/23 18:59 06:59 18:59 Output Total 1240 Balance -1240 Output: Urine 1240 Other: # Voids 2 - Labs CBC & Chem 7: 12/11/23 09:00 12/08/23 06:24 Labs: Abnormal Lab Results - Last 24 Hours (Table) 12/11/23 Range/Units 09:00 Lymphocytes # 0.9 L (1.0-4.8) k/uL
[2023-12-11 16:06] LABS: BUN/Creat Ratio 15.38 Ratio (12.00-20.00); Blood Urea Nitrogen 12.3 mg/dL (9.0-27.0); Calcium 9.3 mg/dL (8.7-10.3); Carbon Dioxide 21.1 mmol/L (21.6-31.8); Chloride 101 mmol/L (96-109); Glucose 88 mg/dL (70-110); Potassium 4.4 mmol/L (3.5-5.5); Sodium 134 mmol/L (135-145)
--- NOTE | 2023-12-11 21:11 | P.PN ---
Progress Note - Text Progress Note Date: 12/11/23 Follow-up Mediation Review Chief Complaint: The patient noted feeling fine. He did not have any specific complaints. Subjective: The patient noted that he is not having any panic attacks now. He did complain of sleep disturbance. The patient noted that he has had sleep problems for years. The patients ex-, who is very involved in patients treatment noted that the patient has been having problem with his memory for more than a year. They have gone to Neurologist but no firm diagnosis has been made. The family has taken away the car keys from the patient because of memory issues. The family was advised by the neurologist. The patient did not have any other complaints. Leading questions: The patient admitted to panic attacks and anxiety. Denied SI or HI. Denied symptoms consistent with psychosis. Objective- MSE: Alert and attentive. Dressed and Groomed: Appropriately. Pleasant and cooperative. Psychomotor Activity: Normal. Speech: Normal in tone, quality, and quantity. Mood: Anxious. Affect: Perplexed SI or HI: None. Perceptual disturbance: None. Thought Content: No paranoia or other delusional thinking noted. Thought Process: Normal. Cognition: orientation x2. Short term memory deficit, confusion, mild impairment of higher cognitive functions. Judgment and Insight: fair Diagnosis: Neurocognitive deficit, Panic disorder, H/O Bipolar disorder. Recommendations: Continue current medications. D/C sitter for suicidal precautions. The patients Mental status stable to be discharged as an out-pt for further psychiatric management. The patient will need supervised structured setting post discharge for safe disposition. Advise Neuropsychiatric testing as an out-pt. Re-evaluation of neurocognitive deficit in 3 months. Will sign off the case,Please reconsult, if MS changes.
[2023-12-12 07:11] VITALS: BP 134/75; PULSE 54; RESP 17; TEMP 98.2
--- NOTE | 2023-12-12 10:42 | P.PN ---
Subjective Progress Note Date: 12/11/23 12/11/2023: Patient was seen for a follow-up. Patient states that he has "good day today". He denies any history of tick disorder. Patient is constantly moving/wiggling his toes up and down. He believes that there is something loose in his larynx trying to move his larynx [id number]. Patient is very frequently vocalizing like a low amplitude grunt , like clearing throat. He is frequently having dystonic movement of the jaw, almost like jaw closing dystonia. 12/09/2023: Patient was initially seen by Dr. Lorenzo Walsh. Please refer to his note for details. Patient is a 63-year-old male with psychiatric history with tremors, intermittent confusion and his medication modified recently by [facility]. [facility]. Walsh felt that confusion was related to psych medications. Objective - Vital Signs Vital signs: Vital Signs Temp 98.0 F 12/11/23 14:00 Pulse 62 12/11/23 14:00 Resp 16 12/11/23 14:00 BP 115/63 12/11/23 14:00 Pulse Ox 96 12/11/23 14:00 FiO2 Intake & Output 12/10/23 12/11/23 12/11/23 18:59 06:59 18:59 Output Total 1240 Balance -1240 Output: Urine 1240 Other: # Voids 2 - Exam Patient is a young looking elderly male, laying in the bed, in no acute distress. Patient is alert and awake in no distress. He has a slightly hesitant speech. Patient knows it is December and the year is 24 and thinks that he is in [place] in [place] and knows name of the current president Mr. Palacios. Patient can name objects but is very hesitant, delayed response. Some scanning type response. He can repeat. Patient states that he has son Portillo, and stepdaughter Dania. He lives by himself. Patient is constantly having some throat clearing or grunting type sounds. Frequently having jaw closing dystonia type movement. His pupils are equal, round and reacting, visual nassar are full, face is symmetric. Lips are slightly dry. Tongue protrudes to midline. On muscle strength testing, there is no pronator drift. He has slight, mild tremors of outstretched hands, only with arms up, but not with palms down. Tone is normal. Muscle strength appears normal although he was giving decreased effort. He has constant toe wiggling, almost like a nervous tic. No ataxia for [id number] testing, no ataxia for [id number] testing. He has some history of previous scar over the left hip region. - Labs CBC & Chem 7: 12/11/23 09:00 12/11/23 09:00 Labs: Abnormal Lab Results - Last 24 Hours (Table) 12/11/23 12/11/23 Range/Units 09:00 09:00 Lymphocytes # 0.9 L (1.0-4.8) k/uL Sodium 134 L (135-145) mmol/L Carbon Dioxide 21.1 L (21.6-31.8) mmol/L Assessment and Plan Assessment: This is a 63-year-old gentleman with a history of hypertension, bipolar, anxiety depression who presents because of intermittent confusion in which he becomes less responsive very anxious and having tremors per the ED note. He is on Depakote, Ativan, Zoloft and it seems that in the last few months he had increased medication [facility] the [facility]. Psychiatry evaluated him and they felt it was not a psychiatric issue but rather neurological. Tremor with intermittent confusion: Unsure exact etiology but rule out due to medication effect especially his medication has been increased in the last few months versus ruling out seizure. Patient is on high dose of Zoloft. Depakote level was therapeutic. CT of the head is unremarkable History of old left lower extremity weakness with numbness according to the patient: Patient claims he had left hip surgery from "bone spurs". History of bipolar History of anxiety History of depression Plan: TSH 0.812, CK 132, ammonia level 9, vitamin B12 416. Depakote level 57.2. EEG was performed, which was normal during wakefulness and drowsiness. Presence of very frequent intermittent high amplitude myogenic activity seen, particularly in the bitemporal region. Evaluate for possible dystonia or tremor. No epileptiform activity was seen. CT head showed no acute process. Patient has received Benadryl and hydroxyzine. Currently patient on Depakote 1000 g at bedtime, and Zoloft [address] Walsh was concerned about high-dose Zoloft, if there is interaction between medication. Psychiatry on board. Recommend patient follow up with movement disorder specialist for evaluation of possible jaw dystonia versus tic disorder. Will defer the rest of the medical management to primary and other specialist
--- NOTE | 2023-12-12 15:30 | P.DS ---
Providers Date of admission: 12/07/23 14:37 Expected date of discharge: 12/12/23 Attending physician: Bart Galarza MD Consults: 12/07/23 14:35 Consult Physician Routine Consulting Provider: Albino Vaca Consult Reason/Comments: akathesia Do you want consulting provider notified?: Yes 12/08/23 15:55 Consult Physician Routine Consulting Provider: Lorenzo Walsh Consult Reason/Comments: tremors Do you want consulting provider notified?: Yes Primary care physician: [facility] Hospital Course: 1. Altered mental status, encephalopathy multifactorial likely associated with underlying psychiatric disorder: 2. Essential hypertension: 3. Bipolar disease: 4. Essential tremors: Gen: In NAD, non-toxic HEENT: normocephalic, atraumatic, hearing acuity is intant, mucous membranes moist CVS: perfusing all extremities well, no pitting edema, Respiratory: symmetric chest expansion, no accessory muscle use, GI: soft, NTTP, ND, : no suprapubic tenderness, no CVA tenderness MSK/Derm: no rashes, cyanosis Neuro: CN II-XII intact, no motor weakness, Hospital course: 63-year-old man with medical history of hypertension, bipolar disorder, essential tremors presented for evaluation of altered mental status. Neurology and psychiatry were consulted, psychiatry believes polypharmacy is contributing to patient's altered mental status, cleared the patient from their end. Neurology workup recommended psychiatry consult and f/u with movement disorder specialist. Pt was seen and evaluated by psychiatry, no medication adjustments were deemed necessary and patient was cleared for discharge from their end. Pt will f/u with PCP for ongoing workup and referral for movement disorder specialist. Patient Condition at Discharge: Good Plan - Discharge Summary New Discharge Prescriptions: Continue amLODIPine 10 mg PO DAILY Sertraline [Zoloft] 200 mg PO DAILY Divalproex ER [Depakote ER] 1,000 mg PO HS Cholecalciferol [Vitamin D3 (25 Mcg = 1000 Iu)] 50 mcg PO DAILY Losartan [Cozaar] 50 mg PO DAILY Propranolol [Inderal] 5 mg PO BID Melatonin 10 mg PO HS LORazepam [Ativan] 1 mg PO BID Discharge Medication List Cholecalciferol [Vitamin D3 (25 Mcg = 1000 Iu)] 50 mcg PO DAILY 06/08/23 [History] Losartan [Cozaar] 50 mg PO DAILY 06/08/23 [History] amLODIPine 10 mg PO DAILY 06/08/23 [History] Divalproex ER [Depakote ER] 1,000 mg PO HS 12/07/23 [History] LORazepam [Ativan] 1 mg PO BID 12/07/23 [History] Melatonin 10 mg PO HS 12/07/23 [History] Propranolol [Inderal] 5 mg PO BID 12/07/23 [History] Sertraline [Zoloft] 200 mg PO DAILY 12/07/23 [History] Follow up Appointment(s)/Referral(s): [facility],Clinic [Primary Care Provider] - 1-2 days Discharge Disposition: HOME SELF-CARE
== END 2023-12-12 14:42 | disposition home or self-care (01) ==
LOC: EC 11:11 → 4SSUR 14:37
PROVIDERS: ADMIT Student in an Organized Health Care Education/Training Program; ATTEND Student in an Organized Health Care Education/Training Program
DX: G93.40 Encephalopathy, unspecified (principal); G25.71 Drug induced akathisia; G25.9 Extrapyramidal and movement disorder, unspecified; R53.1 Weakness; R20.0 Anesthesia of skin; J45.909 Unspecified asthma, uncomplicated; I10 Essential (primary) hypertension; F31.9 Bipolar disorder, unspecified; F41.0 Panic disorder [episodic paroxysmal anxiety]; Z87.891 Personal history of nicotine dependence; Z79.899 Other long term (current) drug therapy; Z88.1 Allergy status to other antibiotic agents
CPT/HCPCS: 96361 ×5; 96376; 96374; 96375; 99285; 36415; 94760 ×2; 95816; 93005; 80156; 80164 ×2; 80053 ×2; 80048; 84443; 82607; 82140; 82550; 80185; 83735 ×2; 85025 ×3; 81003; 80306; 80143; 80320; 80179; 70450; G0378 ×6; J2060; J1200; J1953

== ENCOUNTER 2024-03-11 05:02 | Emergency (ER) | payer OTHER, MEDICARE ==
[2024-03-11 05:13] VITALS: RESP 18; TEMP 98.8
[2024-03-11] MEDS: SODIUM CHLORIDE 0.9% 1,000 ML IV STA ×2 (05:30→06:01)
--- NOTE | 2024-03-11 05:30 | ED ---
Abdominal Pain HPI - General Source: EMS, RN notes reviewed, old records reviewed Mode of arrival: EMS Limitations: no limitations - History of Present Illness MD Complaint: abdominal pain -: days(s) Location: RUQ Radiation: RUQ Migration to: no migration Severity: moderate Severity scale (1-10): 4 Quality: cramping, stabbing Consistency: constant Improves With: nothing Worsens With: nothing <Rad Brennan - Last Filed: 03/28/24 19:39> <Idania Munguia - Last Filed: 03/31/24 23:42> - General Chief Complaint: Abdominal Pain Stated Complaint: R Upper Quadrant Pain Time Seen by Provider: 03/11/24 05:07 - History of Present Illness Initial Comments: This is a 64-year-old male to the ER for evaluation today. Patient presents today for evaluation regards to complaints of abdominal pain chest pain right upper quadrant abdominal pain not feeling well patient continues to state he needs to be checked out he does seem to be a poor historian unsure of underlying mental status (Rad Brennan) - Related Data Home Medications Medication Instructions Recorded Confirmed Cholecalciferol [Vitamin D3 (25 50 mcg PO DAILY 06/08/23 12/07/23 Mcg = 1000 Iu)] Losartan [Cozaar] 50 mg PO DAILY 06/08/23 12/07/23 amLODIPine 10 mg PO DAILY 06/08/23 12/07/23 Divalproex ER [Depakote ER] 1,000 mg PO HS 12/07/23 12/07/23 LORazepam [Ativan] 1 mg PO BID 12/07/23 12/07/23 Melatonin 10 mg PO HS 12/07/23 12/07/23 Propranolol [Inderal] 5 mg PO BID 12/07/23 12/07/23 Sertraline [Zoloft] 200 mg PO DAILY 12/07/23 12/07/23 Previous Rx's Medication Instructions Recorded Docusate [Colace] 100 mg PO BID #30 capsule 03/11/24 polyethylene glycoL 3350 [Miralax] 17 gm PO DAILY #527 gm 03/11/24 Allergies Allergy/AdvReac Type Severity Reaction Status Date / Time Yeast Allergy Unknown Verified 03/11/24 05:14 clindamycin AdvReac Diarrhea Verified 03/11/24 05:14 meloxicam AdvReac "BLEEDING" Verified 03/11/24 05:14 prednisone AdvReac Lethargy, Verified 03/11/24 05:14 agitation, confusion ADRENAL CORTICOSTEROIDS AdvReac INSOMNIA Uncoded 03/11/24 05:14 Review of Systems ROS Other: All systems not noted in ROS Statement are negative. <Rad Brennan - Last Filed: 03/28/24 19:39> ROS Other: All systems not noted in ROS Statement are negative. <Norma Munguiaah Billie - Last Filed: 03/31/24 23:42> ROS Statement: Those systems with pertinent positive or pertinent negative responses have been documented in the HPI. Past Medical History Past Medical History: Asthma, Hypertension Additional Past Medical History / Comment(s): Nerve damage in leg, covid History of Any Multi-Drug Resistant Organisms: None Reported Past Surgical History: Orthopedic Surgery, Tonsillectomy Additional Past Surgical History / Comment(s): testicular surgery Past Psychological History: Anxiety, Bipolar, Depression Smoking Status: Former smoker Past Alcohol Use History: None Reported Past Drug Use History: None Reported <MikaRad - Last Filed: 03/28/24 19:39> General Exam Limitations: no limitations General appearance: alert, in no apparent distress, anxious, in distress Head exam: Present: atraumatic, normocephalic, normal inspection Eye exam: Present: normal appearance, PERRL, EOMI. Absent: scleral icterus, conjunctival injection, periorbital swelling ENT exam: Present: normal exam, mucous membranes moist Neck exam: Present: normal inspection. Absent: tenderness, meningismus, lymphadenopathy Respiratory exam: Present: normal lung sounds bilaterally. Absent: respiratory distress, wheezes, rales, rhonchi, stridor Cardiovascular Exam: Present: regular rate, normal rhythm, normal heart sounds. Absent: systolic murmur, diastolic murmur, rubs, gallop, clicks GI/Abdominal exam: Present: soft, normal bowel sounds. Absent: distended, tenderness, guarding, rebound, rigid Extremities exam: Present: normal inspection, full ROM, normal capillary refill. Absent: tenderness, pedal edema, joint swelling, calf tenderness Back exam: Present: normal inspection Neurological exam: Present: alert, oriented X3, CN II-XII intact Psychiatric exam: Present: normal affect, normal mood Skin exam: Present: warm, dry, intact, normal color. Absent: rash <MikaRad B - Last Filed: 03/28/24 19:39> Course <LolaaugieRad Nabil - Last Filed: 03/28/24 19:39> Vital Signs 03/11/24 03/11/24 05:03 07:00 Temperature 98.8 F Pulse Rate 61 70 Respiratory 18 18 Rate Blood Pressure 153/97 140/93 O2 Sat by Pulse 97 98 Oximetry - Reevaluation(s) Reevaluation #1: 03/11/24 06:15 Records reviewed (Rad Brennan) Reevaluation #2: 03/11/24 06:15 Patient symptoms improving (Rad Brennan) Reevaluation #3: 03/11/24 06:15 Informed of results and questions answered (Rad Brennan) Reevaluation #4: Was pt. sent in by a medical professional or institution (, PA, APPLIANCE PAINTER AND REFINISHER, urgent care, hospital, or [facility]...) When possible be specific @ -no Did you speak to anyone other than the patient for history (EMS, parent, family, police, friend...)? What history was obtained from this source @ -no Did you review nursing and triage notes (agree or disagree)? Why? @ -agree Are old charts reviewed (outside hosp., previous admission, EMS record, old EKG, old radiological studies, urgent care reports/EKG's, [facility] records)? Report findings @ -yes Differential Diagnosis (chest pain, altered mental status, abdominal pain women, abdominal pain men, vaginal bleeding, weakness, fever, dyspnea, syncope, headache, dizziness, GI bleed, back pain, seizure, CVA, palpatations, mental health, musculoskeletal)? @ -prior EKG interpreted by me (3pts min.). @ -yes X-rays interpreted by me (1pt min.). @ -no CT interpreted by me (1pt min.). @ -yes negative for acute disease U/S interpreted by me (1pt. min.). @ -yes negative for acute disease What testing was considered but not performed or refused? (CT, X-rays, U/S, labs)? Why? @ -none What meds were considered but not given or refused? Why? @ -none Did you discuss the management of the patient with other professionals (professionals i.e. , PA, APPLIANCE PAINTER AND REFINISHER, lab, RT, psych nurse, social work faculty member, instructional interventionist, teacher, weapons officer naval activity, comp field case manager)? Give summary @ -no Was smoking cessation discussed for >3mins.? @ -no Was critical care preformed (if so, how long)? @ -no Were there social determinants of health that impacted care today? How? (Homelessness, low income, unemployed, alcoholism, drug addiction, transportation, low edu. Level, literacy, decrease access to med. care, halfway, rehab)? @ -none Was there de-escalation of care discussed even if they declined (Discuss DNR or withdrawal of care, Hospice)? DNR status @ -no What co-morbidities impacted this encounter? (DM, HTN, Smoking, COPD, CAD, Cancer, CVA, ARF, Chemo, Hep., AIDS, mental health diagnosis, sleep apnea, morbid obesity)? @ -none Was patient admitted / discharged? Hospital course, mention meds given and route, prescriptions, significant lab abnormalities, going to OR and other pertinent info. @ - 64 male for nonspecific abdominal pain normal imaging here in the ER. Patient's pain is controlled and can be discharged home Discharged Undiagnosed new problem with uncertain prognosis? @ -no Drug Therapy requiring intensive monitoring for toxicity (Heparin, Nitro, Insulin, Cardizem)? @ -no Were any procedures done? @ -no Diagnosis/symptom? @ -Abdominal pain NOS Acute, or Chronic, or Acute on Chronic? @ -Acute Uncomplicated (without systemic symptoms) or Complicated (systemic symptoms)? @ -Complicated Side effects of treatment? @ -no Exacerbation, Progression, or Severe Exacerbation? @ -exacerbation Poses a threat to life or bodily function? How? (Chest pain, USA, NC, pneumonia, PE, COPD, DKA, ARF, appy, cholecystitis, CVA, Diverticulitis, Homicidal, Suicidal, threat to staff... and all critical care pts) @ -yes extremes of age yet (Rad Brennan) Reevaluation #5: 03/11/24 06:15 differential Abdominal Pain Men: Appendicitis, cholecystitis, diverticulosis, ischemic bowel, pancreatitis, hepatitis, UTI, gastroenteritis, AAA, incarcerated hernia, bowel obstruction, constipation, inflammatory bowel, hepatitis, peptic ulcer disease, splenic infarction, perforated viscus, testicular torsion, this is not meant to be an all-inclusive list (Rad Brennan) Medical Decision Making - Lab Data Result diagrams: 03/11/24 05:30 03/11/24 05:30 - EKG Data -: EKG Interpreted by Me (EKG is sinus 61 VT 167 QRS 83 QTc 428) - Radiology Data Radiology results: report reviewed (CT angio chest CT abdomen pelvis ultrasound gallbladder negative for acute disease), image reviewed <Rad Brennan - Last Filed: 03/28/24 19:39> - Lab Data Result diagrams: 03/11/24 05:30 03/11/24 05:30 <Idania Munguia - Last Filed: 03/31/24 23:42> - Medical Decision Making 64 male for nonspecific abdominal pain normal imaging here in the ER. Patient's pain is controlled and can be discharged home (Rad Brennan) Was patient admitted / discharged? Hospital course, mention meds given and route, prescriptions, significant lab abnormalities, going to OR and other pertinent info. @ -Patient signed out to me pending CT and ultrasound results. Studies are within normal limits. Patient will be discharged home and instructed to follow- up with his primary care doctor for further workup Undiagnosed new problem with uncertain prognosis? @ -Yes Drug Therapy requiring intensive monitoring for toxicity (Heparin, Nitro, Insulin, Cardizem)? @ -No Were any procedures done? @ -No Diagnosis/symptom? @ -Acute epigastric abdominal pain, acute constipation Acute, or Chronic, or Acute on Chronic? @ -Acute Uncomplicated (without systemic symptoms) or Complicated (systemic symptoms)? @ -Complicated Side effects of treatment? @ -No Exacerbation, Progression, or Severe Exacerbation? @ -No Poses a threat to life or bodily function? How? (Chest pain, USA, NC, pneumonia, PE, COPD, DKA, ARF, appy, cholecystitis, CVA, Diverticulitis, Homicidal, Suicidal, threat to staff... and all critical care pts) @ -No (Idania Munguia) - Lab Data Lab Results 03/11/24 03/11/24 03/11/24 Range/Units 05:30 05:30 05:30 WBC 6.8 (3.8-10.6) k/uL RBC 5.20 (4.30-5.90) m/uL Hgb 15.6 (13.0-17.5) gm/dL Hct 45.0 (39.0-53.0) % MCV 86.4 (80.0-100.0) fL MCH 30.0 (25.0-35.0) pg MCHC 34.7 (31.0-37.0) g/dL RDW 14.3 (11.5-15.5) % Plt Count 163 (150-450) k/uL MPV 8.7 Neutrophils % 71 % Lymphocytes % 17 % Monocytes % 8 % Eosinophils % 1 % Basophils % 0 % Neutrophils # 4.9 (1.3-7.7) k/uL Lymphocytes # 1.2 (1.0-4.8) k/uL Monocytes # 0.6 (0-1.0) k/uL Eosinophils # 0.1 (0-0.7) k/uL Basophils # 0.0 (0-0.2) k/uL PT 10.9 (10.0-12.5) sec INR 1.0 (<1.2) APTT 25.8 (22.0-30.0) sec D-Dimer (<0.60) mg/L FEU Sodium 137 (137-145) mmol/L Potassium 4.2 (3.5-5.1) mmol/L Chloride 105 (98-107) mmol/L Carbon Dioxide 26 (22-30) mmol/L Anion Gap 6 mmol/L BUN 9 (9-20) mg/dL Creatinine 0.65 L (0.66-1.25) mg/dL Est GFR (CKD-EPI)AfAm >90 (>60 ml/min/1.73 sqM) Est GFR (CKD-EPI)NonAf >90 (>60 ml/min/1.73 sqM) Glucose 104 H (74-99) mg/dL Plasma Lactic Acid Stefan (0.7-2.0) mmol/L Calcium 9.5 (8.4-10.2) mg/dL Total Bilirubin 0.7 (0.2-1.3) mg/dL AST 22 (17-59) U/L ALT 14 (4-49) U/L Alkaline Phosphatase 55 (38-126) U/L Troponin I (0.000-0.034) ng/mL Total Protein 6.3 (6.3-8.2) g/dL Albumin 4.2 (3.5-5.0) g/dL Amylase 41 (30-110) U/L Lipase 70 (23-300) U/L 03/11/24 03/11/24 03/11/24 Range/Units 05:30 05:30 05:30 WBC (3.8-10.6) k/uL RBC (4.30-5.90) m/uL Hgb (13.0-17.5) gm/dL Hct (39.0-53.0) % MCV (80.0-100.0) fL MCH (25.0-35.0) pg MCHC (31.0-37.0) g/dL RDW (11.5-15.5) % Plt Count (150-450) k/uL MPV Neutrophils % % Lymphocytes % % Monocytes % % Eosinophils % % Basophils % % Neutrophils # (1.3-7.7) k/uL Lymphocytes # (1.0-4.8) k/uL Monocytes # (0-1.0) k/uL Eosinophils # (0-0.7) k/uL Basophils # (0-0.2) k/uL PT (10.0-12.5) sec INR (<1.2) APTT (22.0-30.0) sec D-Dimer 0.21 (<0.60) mg/L FEU Sodium (137-145) mmol/L Potassium (3.5-5.1) mmol/L Chloride (98-107) mmol/L Carbon Dioxide (22-30) mmol/L Anion Gap mmol/L BUN (9-20) mg/dL Creatinine (0.66-1.25) mg/dL Est GFR (CKD-EPI)AfAm (>60 ml/min/1.73 sqM) Est GFR (CKD-EPI)NonAf (>60 ml/min/1.73 sqM) Glucose (74-99) mg/dL Plasma Lactic Acid Stefan 1.0 (0.7-2.0) mmol/L Calcium (8.4-10.2) mg/dL Total Bilirubin (0.2-1.3) mg/dL AST (17-59) U/L ALT (4-49) U/L Alkaline Phosphatase (38-126) U/L Troponin I <0.012 (0.000-0.034) ng/mL Total Protein (6.3-8.2) g/dL Albumin (3.5-5.0) g/dL Amylase (30-110) U/L Lipase (23-300) U/L Disposition <Rad Brennan - Last Filed: 03/28/24 19:39> Is patient prescribed a controlled substance at d/c from ED?: No Time of Disposition: 08:56 <Idania Munguia - Last Filed: 03/31/24 23:42> Clinical Impression: Abdominal pain, Constipation Disposition: HOME SELF-CARE Condition: Stable Instructions (If sedation given, give patient instructions): Abdominal Pain (ED) Additional Instructions: Please follow-up with your primary care doctor for further testing of your symptoms. I recommend a HIDA scan. Return for any new or worsening symptoms Prescriptions: Docusate [Colace] 100 mg PO BID #30 capsule polyethylene glycoL 3350 [Miralax] 17 gm PO DAILY #527 gm Referrals: [facility],Clinic [Primary Care Provider] - 1-2 days
[2024-03-11] MEDS: ONDANSETRON 4 MG/2 ML VIAL IVP STA (05:38)
[2024-03-11] MEDS: KETOROLAC 15 MG/ML 1 ML VIAL IVP STA (05:39)
[2024-03-11 05:45] LABS: Partial Thromboplastin Time 25.8 sec (22.0-30.0); Prothrombin Time 10.9 sec (10.0-12.5)
[2024-03-11 05:50] LABS: Basophils % (A) 0 %; Eosinophils # (A) 0.1 k/uL (0-0.7); Eosinophils % (A) 1 %; HGB 15.6 gm/dL (13.0-17.5); Lymphocytes # (A) 1.2 k/uL (1.0-4.8); Lymphocytes % (A) 17 %; MCHC 34.7 g/dL (31.0-37.0); MCV 86.4 fL (80.0-100.0); Mean Platelet Volume 8.7; Monocytes # (A) 0.6 k/uL (0-1.0); Monocytes % (A) 8 %; Neutrophils # (A) 4.9 k/uL (1.3-7.7); Neutrophils % (A) 71 %; Platelet Count 163 k/uL (150-450); RDW 14.3 % (11.5-15.5); WBC 6.8 k/uL (3.8-10.6)
[2024-03-11 05:57] LABS: ALT 14 U/L (4-49); AST 22 U/L (17-59); African American GFR (CKD) >90 (>60 ml/min/1.73 sqM); Albumin 4.2 g/dL (3.5-5.0); Alkaline Phosphatase 55 U/L (38-126); Amylase 41 U/L (30-110); Anion Gap 6 mmol/L; Blood Urea Nitrogen 9 mg/dL (9-20); Calcium 9.5 mg/dL (8.4-10.2); Carbon Dioxide 26 mmol/L (22-30); Chloride 105 mmol/L (98-107); Glucose 104 mg/dL (74-99); Lipase 70 U/L (23-300); Non-African American GFR(CKD) >90 (>60 ml/min/1.73 sqM); Potassium 4.2 mmol/L (3.5-5.1); Sodium 137 mmol/L (137-145); Total Bilirubin 0.7 mg/dL (0.2-1.3); Total Protein 6.3 g/dL (6.3-8.2)
[2024-03-11 07:40] VITALS: BP 140/93; PULSE 70
--- NOTE | 2024-03-11 08:03 | CT ---
EXAMINATION TYPE: CT angio chest DATE OF EXAM: 03/11/2024 COMPARISON: None HISTORY: RUQ PAIN X [address] DLP: 940.4 mGycm CONTRAST: CT chest with contrast and 3D reconstruction with MIP imaging is performed without and with IV Contra st, patient injected with 100 ml mL of Isovue 370. Contrast-enhanced CT of the chest was performed through the course of the pulmonary arteries with ngozi g and mediastinal window settings submitted. 3D reconstruction with MIP imaging was also performed. PULMONARY ARTERIES: The pulmonary arteries and their major tributaries are patent. I do not see diamond dence for sizable filling defect to suggest pulmonary embolic process. LUNGS: The lungs are clear and free of infiltrate. No evidence for atelectasis. No pulmonary nodule or mass is detected. No pleural effusion. MEDIASTINUM: Thoracic aorta is of normal caliber,however, evaluation is limited given timing of the contrast bolus. If there is concern for thoracic aortic pathology consider JOSEP. Correlate clinicall y . The heart is not enlarged. No evidence for mediastinal mass. No mediastinal lymph nodes greater than 1cm. HILAR STRUCTURES: No evidence for mass. No hilar lymph nodes greater than 1 cm. UPPER ABDOMEN: No significant abnormality is seen. IMPRESSION: 1. No evidence for Pulmonary embolism at this time.
--- NOTE | 2024-03-11 08:08 | CT ---
EXAMINATION TYPE: CT abdomen pelvis w con DATE OF EXAM: 03/11/2024 COMPARISON: None HISTORY: RUQ PAIN X [address] DLP: 940.4 mGycm CONTRAST: CT scan of the abdomen and pelvis is performed without Oral Contrast and with IV Contrast, patient in jected with 100 ml mL of Isovue 370. FINDINGS: LUNG BASES-: No visible nodule. No infiltrate. LIVER/GB: No calcified gallstones. No space occupying hepatic lesion. Biliary tree is of normal ca liber. PANCREAS: No inflammation. No distinct mass. SPLEEN: No splenic enlargement. No lesion seen. ADRENALS: No nodule. No thickening. KIDNEYS/BLADDER: No hydronephrosis. No nephrolithiasis. Renal cystic changes are noted. Urinary judson dder grossly unremarkable. BOWEL: Normal appendix. Normal bowel caliber. No inflammation. GENITAL ORGANS: No gross abnormality. LYMPH NODES: No greater than 1cm abdominal or pelvic lymph nodes are appreciated. AORTA: No significant abnormality. OSSEOUS STRUCTURES: No significant abnormality is seen. OTHER: No significant additional abnormality is seen. IMPRESSION: 1. No acute process seen.
--- NOTE | 2024-03-11 08:37 | US ---
EXAMINATION TYPE: US gallbladder DATE OF EXAM: 03/11/2024 COMPARISON: Same day CT CLINICAL INDICATION: Male, 64 years old with history of pain; Pain x 3 days. TECHNIQUE: Multiple sonographic images of the right upper quadrant are obtained. FINDINGS: EXAM MEASUREMENTS: Liver Length: 16.0 cm Gallbladder Wall: 0.26 cm CBD: Obscured Right Kidney: 11.0 x 6.0 x 6.4 cm JAVA ANDROID DEVELOPER NOTES: Exam is very limited due to great amount of gas. Pancreas: Obscured. Liver: Slightly echogenic. Left lobe was not well seen. Gallbladder: Appears anechoic. No gallstones or abnormal distention. Evidence for sonographic Nava's sign: No CBD: Obscured Right Kidney: *Mildly complex cyst at the upper to mid pole possibly within internal septation: 2.7 x 2.7 x 2.7 cm. Limited due to gas/rib shadow. No hydronephrosis is seen. IMPRESSION: 1. Mild hepatic steatosis. 2. Exam limitations as above. A number of structures including the bile duct and pancreas could not b e adequately visualized. 3. A mildly complex cyst upper to mid pole right kidney measuring 2.7 cm. Benign etiology suspected. 6 month follow-up ultrasound to reassess.
[2024-03-11] MEDS: MORPHINE SULFATE 4 MG/ML SYRINGE IV STA (09:16)
[2024-03-11] MEDS: MAGNESIUM CITRATE 296 ML BOTTLE PO ONE (09:17)
== END 2024-03-11 09:21 | disposition home or self-care (01) ==
LOC: EC 05:02
CPT/HCPCS: 36415; 71275; 74177; 76705; 80053; 82150; 83605; 83690; 84484; 85025; 85379; 85610; 85730; 96361; 96374; 96375; 99285